=== PATIENT | male | born 1955 | race Caucasian/White ===

== ENCOUNTER 2020-04-12 12:48 | Outpatient (REF) | payer BC, SELFPAY ==
[2020-04-12 14:17] LABS: Hematocrit 48.9 % (42-52); Hemoglobin 16.1 g/dl (14.0-18.0); Mean Corpuscular HGB Conc 32.9 g/dl (31.0-36.0); Mean Corpuscular Hemoglobin 29.8 pg (27.0-33.0); Mean Corpuscular Volume 90.6 fL (80-98); Mean Platelet Volume 10.2 fL (9.4-12.4); Platelet Count 273 X10*3/uL (160-400); Red Cell Distribution Width 12.9 % (11.0-16.0); White Blood Count 8.4 X10*3/uL (4.8-10.8)
[2020-04-12 14:27] LABS: Estimated Glomerular Filt Rate > 60
[2020-04-12 15:23] LABS: Prostate Specific Antigen 6.75 ng/mL (<0.05-4.0)
[2020-04-12 15:46] LABS: Blood Urea Nitrogen 14 mg/dL (9-16)
[2020-04-16 11:56] LABS: Testosterone, Total 333 ng/dL (250-1100)
== END 2020-04-12 12:49 | disposition home or self-care (01) ==
LOC: HO.HMGCLDS 12:48
PROVIDERS: PCP Internal Medicine; Visit Provider Urology
DX: E29.1 Testicular hypofunction (principal); C03.1 Malignant neoplasm of lower gum; N40.1 Benign prostatic hyperplasia with lower urinary tract symptoms; N13.8 Other obstructive and reflux uropathy; Z12.5 Encounter for screening for malignant neoplasm of prostate
CPT/HCPCS: 36415; 82565; 84153; 84403; 84520; 85027

== ENCOUNTER → 2020-04-21 14:00 | Outpatient (BNVA) | payer BC, SELFPAY | PROVIDERS: PCP Internal Medicine; Visit Provider Urology ==

== ENCOUNTER 2020-04-23 13:46 | Outpatient (REF) | payer BC, SELFPAY ==
--- NOTE | ~2020-04-23 | CT_ITS ---
EXAMINATION: CT SOFT TISSUE NECK WITH CONTRAST CLINICAL INFORMATION: Malignant neoplasm of the mouth. COMPARISON: Soft tissue neck CT scan TECHNIQUE: Following the intravenous administration of 60 mL of Omnipaque 350 intravenous contrast, helical imaging was performed in the axial plane with generation of coronal and sagittal reformatted images. This CT examination was performed using dose optimization techniques as appropriate, variously including the following: *Automated exposure control *Adjustment of mA and/or kV according to patient size (this includes techniques or standardized protocols for targeted exams where dose is matched to indication/reason for exam; i.e. extremities or head) *Use of iterative reconstruction technique DLP: 365 mGy-cm FINDINGS: There is a soft tissue mass of the oral vestibule eroding the anterior parasymphyseal margin of the mandibular alveolar process best illustrated on axial image 59 of 137 series 3. There are a few symmetrically distributed somewhat prominent albeit nonspecific level I and II cervical lymph nodes. No mediastinal or axillary adenopathy is visualized within the [id number] of this examination. Pharyngeal mucosal spaces are symmetric. Parapharyngeal and retromaxillary fat is preserved. Tube Operator spaces are symmetric. The parotid and submandibular glands are normal. The tongue base and epiglottis are normal. Preepiglottic fat is preserved. Glottic and subglottic airways are widely patent. The thyroid gland is normal and the remainder of the visualized visceral soft tissues are normal. Lung apices are clear. Aortic arch apex is normal. Cervical carotid and vertebral arteries are patent. Internal jugular veins fill symmetrically. There is no acute osseous finding. Specifically no worrisome lytic or blastic osseous lesion. There is multilevel degenerative spondylosis of the cervical spine. Although suboptimally assessed there is a least moderate canal stenosis at levels of C5-C6 and C6-C7. Limited visualization of the intracranial anatomy reveals no abnormal finding. CT/CT soft tissue neck w con IMPRESSION: There is a soft tissue mass of the oral vestibule eroding the anterior parasymphyseal margin of the mandibular alveolar process. These findings therefore are consistent with disease progression when compared to the soft tissue neck CT scan from 11/05/2017. There are a few somewhat prominent albeit nonspecific level I an level II cervical lymph nodes. Incidentally there is multilevel degenerative spondylosis of the cervical spine with at least moderate canal stenosis at the levels of C5-C6 and C6-C7. If there are clinical symptoms of compressive myelopathy then dedicated cervical spine MRI can be obtained for better anatomic characterization of the cord and canal.
== END 2020-04-23 13:47 | disposition home or self-care (01) ==
LOC: HO.CT 13:46
PROVIDERS: Visit Provider Otolaryngology
DX: C03.1 Malignant neoplasm of lower gum (principal)
CPT/HCPCS: 70491; Q9967

== ENCOUNTER 2020-06-07 13:42 | Outpatient (REF) | payer BC, SELFPAY ==
[2020-06-08 11:37] LABS: Free Prostate Spec Ag 0.7 ng/mL; Percent Free Prostate Spec Ag 16 % (calc) (>25); Prostate Specific Ag Total 4.3 ng/mL (< OR = 4.0)
== END 2020-06-07 13:43 | disposition home or self-care (01) ==
LOC: HO.HMGCLDS 13:42
PROVIDERS: PCP Internal Medicine; Visit Provider Urology
DX: N40.1 Benign prostatic hyperplasia with lower urinary tract symptoms (principal); N13.8 Other obstructive and reflux uropathy; Z12.5 Encounter for screening for malignant neoplasm of prostate
CPT/HCPCS: 36415; 84153; 84154

== ENCOUNTER → 2020-06-15 15:38 | Outpatient (BNVA) | payer BC, SELFPAY | PROVIDERS: Visit Provider Urology ==

== ENCOUNTER 2021-01-04 14:07 | Outpatient (REF) | payer BC, SELFPAY ==
[2021-01-04 16:41] LABS: Hematocrit 42.1 % (42.0-52.0); Hemoglobin 13.5 g/dl (14.0-18.0); Mean Corpuscular HGB Conc 32.1 g/dl (31.0-36.0); Mean Corpuscular Hemoglobin 28.3 pg (27.0-33.0); Mean Corpuscular Volume 88.3 fL (80.0-98.0); Platelet Count 248 X10*3/uL (160-400); Red Blood Count 4.77 X10*6/uL (4.60-5.80); Red Cell Distribution Width 13.9 % (11.0-16.0); White Blood Count 4.4 X10*3/uL (4.8-10.8)
[2021-01-04 17:22] LABS: Prostate Specific Antigen 2.88 ng/mL (<0.05-4.0)
[2021-01-09 09:47] LABS: Testosterone, Total 360 ng/dL (250-1100)
== END 2021-01-04 14:08 | disposition home or self-care (01) ==
LOC: HO.HMGCLDS 14:07
PROVIDERS: PCP Internal Medicine; Visit Provider Urology
DX: Z12.5 Encounter for screening for malignant neoplasm of prostate (principal); E29.1 Testicular hypofunction
CPT/HCPCS: 36415; 84153; 84403; 85027

== ENCOUNTER → 2021-01-19 15:20 | Outpatient (BNVA) | payer BC, SELFPAY | PROVIDERS: Visit Provider Urology ==

== ENCOUNTER 2021-03-21 13:57 | Outpatient (REF) | payer BC, SELFPAY ==
--- NOTE | ~2021-03-21 | CT_ITS ---
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 COMPARISON: 04/23/2020 CT TECHNIQUE: Following the intravenous administration of 100 mL of Omnipaque 350 intravenous contrast, helical imaging was performed in the axial plane with generation of coronal and sagittal reformatted images. This CT examination was performed using dose optimization techniques as appropriate, variously including the following: *Automated exposure control *Adjustment of mA and/or kV according to patient size (this includes techniques or standardized protocols for targeted exams where dose is matched to indication/reason for exam; i.e. extremities or head) *Use of iterative reconstruction technique DLP: 277 mGy-cm FINDINGS: Skull Base: Bony skull base appears intact. Visualized intracranial structures are grossly unremarkable in appearance. The visualized calvarium is intact. Mastoids and middle ear cavities are unopacified. Some retention cysts noted in the right maxillary sinus. Visualized intraorbital soft tissue structures appear grossly unremarkable. 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 The oral cavity and oropharynx are partially obscured by dental amalgam artifact. There is evidence of a previous mandibular resection and reconstruction with fibular graft, with fixation hardware in place. There is loss of tissue plane between the left parotid gland and the left submandibular space, presumably posttreatment changes. There is some asymmetry of the oropharynx with a bulging appearance on the left posterolaterally, which should be correlated with direct visualization. Multiple surgical clips are seen in the subarticular spaces bilaterally consistent with previous lymph node dissections. There is some obscuration of tissue planes in the subarticular spaces bilaterally consistent with posttreatment and postsurgical changes. Relatively symmetric soft tissue thickening is seen along the anterior aspect of the reconstructed mandible, likely reflecting posttreatment changes. The visualized base of the tongue appears intact. The submandibular glands are not visualized on either side consistent with previous surgery. No definite lymphadenopathy is visualized, although evaluation is limited due to tissue plane obscuration secondary to posttreatment changes. Infrahyoid Neck: There is thickening of the epiglottis with circumferential thickening of the hypopharynx, likely reflecting posttreatment changes. Otherwise the larynx appears unremarkable. There is loss of tissue planes between the platysma and portions of the sternocleidomastoid muscles bilaterally consistent with posttreatment changes. There is infiltration of the fat along the anterior aspect of the neck also consistent with this. Thyroid gland enhances normally. No definite infrahyoid lymphadenopathy. Atheromatous vascular calcifications of the carotid bulbs are noted bilaterally similar to the previous exam. There is opacification of the major arterial and venous structures in the neck. Upper Chest: Visualized mediastinum is unremarkable. Visualized lung parenchyma shows minimal patchy opacity in the right upper lobe which is a new finding from previous exam and may reflect a subtle infiltrate. Follow-up clinically. Skeletal: Multilevel cervical DDD and spondylosis is noted with multilevel degenerative endplate sclerosis unchanged in appearance. No focally aggressive osseous lesions. Other Comments: None. CT/CT soft tissue neck w con IMPRESSION: 1. Extensive postsurgical and posttreatment changes status post resection of mandibular lesion as described above with no convincing evidence for recurrent lymphadenopathy within the limitations of the study. There is some bulging of the posterolateral oropharynx on the left which should be correlated with direct visualization, with no abnormal enhancement. See above for details. 2. Atheromatous calcifications of the carotid bulbs bilaterally similar to previous exam and multilevel cervical DDD and spondylosis unchanged in appearance.
[2021-03-21 15:17] LABS: Blood Urea Nitrogen 9 mg/dL (9-16); Estimated Glomerular Filt Rate > 60
[2021-03-21] MEDS: iohexoL 350 MG/ML 100 ML INFUS..BTL IV (15:48)
== END 2021-03-21 13:58 | disposition home or self-care (01) ==
LOC: HO.CT 13:57
PROVIDERS: Otolaryngology; PCP Internal Medicine; Visit Provider Nurse Practitioner Adult Health
DX: C03.1 Malignant neoplasm of lower gum (principal)
CPT/HCPCS: 36415; 70491; 82565; 84520; Q9967

== ENCOUNTER 2021-07-11 13:34 | Outpatient (REF) | payer BC, SELFPAY ==
[2021-07-11 16:26] LABS: Hematocrit 41.3 % (42.0-52.0); Hemoglobin 13.6 g/dl (14.0-18.0); Mean Corpuscular HGB Conc 32.9 g/dl (31.0-36.0); Mean Corpuscular Hemoglobin 28.6 pg (27.0-33.0); Mean Corpuscular Volume 86.8 fL (80.0-98.0); Mean Platelet Volume 9.4 fL (9.4-12.4); Platelet Count 257 X10*3/uL (160-400); Red Blood Count 4.76 X10*6/uL (4.60-5.80); Red Cell Distribution Width 13.4 % (11.0-16.0); White Blood Count 3.8 X10*3/uL (4.8-10.8)
[2021-07-11 17:05] LABS: Prostate Specific Antigen 3.32 ng/mL (<0.05-4.0)
[2021-07-15 01:47] LABS: Testosterone, Total 295 ng/dL (250-1100)
== END 2021-07-11 13:35 | disposition home or self-care (01) ==
LOC: HO.HMGCLDS 13:34
PROVIDERS: PCP Internal Medicine; Visit Provider Urology
DX: E29.1 Testicular hypofunction (principal); Z12.5 Encounter for screening for malignant neoplasm of prostate
CPT/HCPCS: 36415; 84153; 84403; 85027

== ENCOUNTER 2021-08-01 14:45 | Outpatient (REF) | payer BC, SELFPAY ==
--- NOTE | ~2021-08-01 | CT_ITS ---
EXAMINATION: CT CHEST WITH CONTRAST CLINICAL INFORMATION: Head and neck cancer. COMPARISON: Previous chest CT December 2016. TECHNIQUE: Multidetector volumetric CT imaging of the chest was obtained after the administration of 80 mL of Omnipaque 350 intravenous contrast without immediate adverse reactions. Axial MIP volume rendering provided. Sagittal and coronal reformatted images were obtained. Patient developed hives. This CT examination was performed using dose optimization techniques as appropriate, variously including the following: *Automated exposure control *Adjustment of mA and/or kV according to patient size (this includes techniques or standardized protocols for targeted exams where dose is matched to indication/reason for exam; i.e. extremities or head) *Use of iterative reconstruction technique DLP: 245 mGy-cm. FINDINGS: LUNGS: There is a 3 mm right upper lobe nodule axial image 202 series 7. There is a 2 mm left upper lobe nodule axial image 202 series 7. There is a 2 mm peripheral left upper lobe nodule axial image 257 series 7. These are stable from 2017 exam. No new pulmonary nodule. MEDIASTINUM: There is coronary artery calcification. The mediastinum is otherwise normal. PLEURA: There is no pleural effusion. No pleural mass or thickening. AXILLA: No lymphadenopathy. UPPER ABDOMEN: Unremarkable OSSEOUS STRUCTURES: There are degenerative changes of the spine. CT/CT chest w con IMPRESSION: Small pulmonary nodules stable from 2017 exam. Fleischner guidelines were followed.
--- NOTE | ~2021-08-01 | CT_ITS ---
EXAMINATION: CT SOFT TISSUE NECK WITH CONTRAST CLINICAL INFORMATION: Malignant neoplasm follow-up. COMPARISON: Neck CT 03/21/2021. TECHNIQUE: Following the intravenous administration of 100 mL of Omnipaque 350 intravenous contrast, helical imaging was performed in the axial plane with generation of coronal and sagittal reformatted images. This CT examination was performed using dose optimization techniques as appropriate, variously including the following: *Automated exposure control *Adjustment of mA and/or kV according to patient size (this includes techniques or standardized protocols for targeted exams where dose is matched to indication/reason for exam; i.e. extremities or head) *Use of iterative reconstruction technique FINDINGS: Patient is status post mandibulectomy and bone flap reconstruction for resection of a previously seen mass eroding the mandibular symphysis. There is persistent lucency surrounding the screws transfixed to the morongo right hemimandible suggesting hardware loosening. Slightly increase nonbridging bone formation along the margins of the bone flap/morongo mandibular reconstruction. No new bony erosive changes are identified. No definite recurrent soft tissue lesion is seen at the site of surgical resection however assessment is limited by the degree of posttreatment changes and artifact from the surgical hardware. Architectural distortion also significantly limits assessment in this area. There is posttreatment stranding throughout the soft tissues adjacent to the resection site and there is mucositis involving the oropharynx, uvula, epiglottis, supraglottic soft tissues, and the hypopharynx. The thyroid gland, the laryngeal structures, and the parotid glands are unremarkable. Multiple surgical clips within the neck bilaterally. Seminal annular glands not visualized, likely resected. The orbital soft tissues are unremarkable. The oropharynx is significantly obscured by artifact. Atherosclerotic calcification involving the carotid bifurcations bilaterally. The cervical venous system remains patent. There is multilevel cervical spondylosis which is advanced at the C3-C4, C4-C5, C5-C6, C6-C7, and C7-T1 levels. There is mild polypoid mucosal thickening within the right maxillary sinus and there is mild mucosal thickening within the ethmoid air cells bilaterally. The remaining paranasal sinuses and the mastoid air cells are clear. Anterior subluxation of the mandibular condyles bilaterally. Imaged upper lungs are clear and the imaged upper mediastinum is unremarkable. Partially imaged intracranial compartment unremarkable. CT/CT soft tissue neck w con IMPRESSION: - Patient is status post mandibulectomy and bone flap reconstruction for resection of a previously seen mass eroding the mandibular symphysis. No new bony erosive changes are identified and no definite recurrent soft tissue lesion is seen at the site of surgical resection however assessment is limited by the degree of posttreatment changes and significant artifact from the surgical hardware. There is no new cervical lymphadenopathy. - There is persistent lucency surrounding the screws transfixed to the morongo right hemimandible suggesting hardware loosening. Slightly increase nonbridging bone formation along the margins of the bone flap/morongo mandibular reconstruction. - There is posttreatment stranding throughout the soft tissues adjacent to the resection site which is improved and there is similar mucositis involving the oropharynx, uvula, epiglottis, supraglottic soft tissues, and the hypopharynx.
[2021-08-01 15:14] LABS: Estimated Glomerular Filt Rate > 60
[2021-08-01] MEDS: iohexoL 350 MG/ML 100 ML INFUS..BTL IV (16:38)
== END 2021-08-01 14:46 | disposition home or self-care (01) ==
LOC: HO.CT 14:45
PROVIDERS: PCP Internal Medicine; Visit Provider Otolaryngology
DX: Z08 Encounter for follow-up examination after completed treatment for malignant neoplasm (principal); R91.8 Other nonspecific abnormal finding of lung field; Z85.819 Personal history of malignant neoplasm of unspecified site of lip, oral cavity, and pharynx
CPT/HCPCS: 36415; 70491; 71260; 82565; Q9967

== ENCOUNTER 2022-01-02 11:54 | Outpatient (REF) | payer BC, SELFPAY ==
[2022-01-02 14:10] LABS: Hematocrit 44.3 % (42.0-52.0)
[2022-01-02 14:43] LABS: PSA,Total (Free>4and<10) 2.64 ng/mL (0.00-4.00)
[2022-01-07 15:18] LABS: Testosterone, Total 502 ng/dL (250-1100)
== END 2022-01-02 11:55 | disposition home or self-care (01) ==
LOC: HO.HMGCLDS 11:54
PROVIDERS: PCP Internal Medicine; Visit Provider Urology
DX: E29.1 Testicular hypofunction (principal); Z12.5 Encounter for screening for malignant neoplasm of prostate
CPT/HCPCS: 36415; 84153; 84403; 85014

== ENCOUNTER 2022-07-05 11:58 | Outpatient (REF) | payer BC, SELFPAY ==
[2022-07-05 14:13] LABS: Hematocrit 46.3 % (42.0-52.0); Hemoglobin 15.3 g/dl (14.0-18.0); Mean Corpuscular Hemoglobin 29.5 pg (27.0-33.0); Mean Corpuscular Volume 89.4 fL (80.0-98.0); Mean Platelet Volume 9.6 fL (9.4-12.4); Platelet Count 280 X10*3/uL (160-400); Red Blood Count 5.18 X10*6/uL (4.60-5.80); Red Cell Distribution Width 13.2 % (11.0-16.0); White Blood Count 4.3 X10*3/uL (4.8-10.8)
[2022-07-05 14:42] LABS: Prostate Specific Antigen 3.57 ng/mL (<0.05-4.0)
[2022-07-11 11:13] LABS: Testosterone, Total 673 ng/dL (250-1100)
== END 2022-07-05 11:59 | disposition home or self-care (01) ==
LOC: HO.HMGCLDS 11:58
PROVIDERS: Visit Provider Urology
DX: Z12.5 Encounter for screening for malignant neoplasm of prostate (principal); E29.1 Testicular hypofunction
CPT/HCPCS: 36415; 84153; 84403; 85027

== ENCOUNTER → 2022-07-18 14:09 | Outpatient (BNVA) | payer BC, SELFPAY | PROVIDERS: PCP Internal Medicine; Visit Provider Urology ==

== ENCOUNTER 2022-12-29 14:51 | Outpatient (REF) | payer BC, SELFPAY ==
--- NOTE | ~2022-12-29 | CT_ITS ---
EXAMINATION: CT SOFT TISSUE NECK WITHOUT CONTRAST CLINICAL INFORMATION: Malignant neoplasm of gum. There seems to be a piece of bone-like growth, growing under my mandible. COMPARISON: CT neck soft tissue on 08/01/2021. TECHNIQUE: Helical imaging was performed in the axial plane with generation of coronal and sagittal reformatted images. This CT examination was performed using dose optimization techniques as appropriate, variously including the following: *Automated exposure control *Adjustment of mA and/or kV according to patient size (this includes techniques or standardized protocols for targeted exams where dose is matched to indication/reason for exam; i.e. extremities or head) *Use of iterative reconstruction technique DLP: 240 mGy-cm FINDINGS: Redemonstration of postsurgical changes from mandibulectomy bone flat reconstruction. There is persistent lucency surrounding the screws transfix to the wales right hemimandible. There has been interval bone formation and osseous bridging along the margins of the bone flap/wales mandibular reconstruction on the right. Persistent nonbridging along the margins of the reconstruction site on the left with suggestion of worsening alignment of the osseous fragments. No new erosive changes identified. No definite recurrent soft tissue lesion at the site of surgical resection; however, assessment is limited by the lack of intravenous contrast, the degree of posttreatment changes as well as artifact from surgical hardware. Diffuse posttreatment stranding is again seen throughout the soft tissues adjacent to the resection site. Multiple surgical clips are visualized within the neck bilaterally, unchanged. No suspiciously enlarged neck lymph node or mass. Limited evaluation of the oral cavity secondary to streak artifacts. Otherwise, the oropharynx appears unremarkable. The nasopharynx, hypopharynx, and laryngeal structures appear unremarkable. The submandibular glands are not visualized, likely surgically absent. The parotid and thyroid glands are unremarkable. The visualized orbits are unremarkable. Mucosal thickening of the maxillary sinuses. The mastoid air cells are clear. Atherosclerotic calcifications of the bilateral carotid siphons. The visualized portions of the brain are unremarkable. Otherwise, no acute osseous abnormality. No lytic or blastic osseous lesions. Multilevel degenerative changes of the visualized spine. The visualized lungs are clear. CT/CT soft tissue neck wo IV con IMPRESSION: -Redemonstration of postsurgical changes from mandibulectomy bone flat reconstruction. Interval bone formation and improved osseous bridging along the margins of the bone flap/wales mandibular reconstruction on the right. Persistent nonbridging along the margins of the reconstruction site on the left with suggestion of worsening alignment of the osseous fragments. -Persistent lucency surrounding the screws transfixed to the wales right hemimandible suggestive of hardware loosening. -No new erosive changes identified. No definite recurrent soft tissue lesion at the site of surgical resection; however, assessment is limited by the lack of intravenous contrast, the degree of posttreatment changes as well as artifact from surgical hardware. No new cervical adenopathy.
== END 2022-12-29 14:52 | disposition home or self-care (01) ==
LOC: HO.CT 14:51
PROVIDERS: PCP Internal Medicine; Visit Provider Specialist
DX: C03.1 Malignant neoplasm of lower gum (principal)
CPT/HCPCS: 70490

== ENCOUNTER 2023-01-10 14:51 | Outpatient (REF) | payer BC, SELFPAY ==
[2023-01-10 16:22] LABS: Hematocrit 42.7 % (42.0-52.0); Hemoglobin 14.5 g/dl (14.0-18.0); Mean Corpuscular Volume 88.2 fL (80.0-98.0); Platelet Count 275 X10*3/uL (160-400); Red Blood Count 4.84 X10*6/uL (4.60-5.80); Red Cell Distribution Width 12.6 % (11.0-16.0); White Blood Count 5.7 X10*3/uL (4.8-10.8)
[2023-01-10 16:57] LABS: Prostate Specific Antigen 4.34 ng/mL (<0.05-4.0)
[2023-01-17 14:38] LABS: Testosterone, Total 423 ng/dL (250-1100)
== END 2023-01-10 14:52 | disposition home or self-care (01) ==
LOC: HO.HMGCLDS 14:51
PROVIDERS: Visit Provider Urology
DX: Z12.5 Encounter for screening for malignant neoplasm of prostate (principal); E29.1 Testicular hypofunction
CPT/HCPCS: 36415; 84153; 84403; 85027

== ENCOUNTER 2023-01-17 14:04 | Outpatient (AMB) | payer BC, SELFPAY ==
--- NOTE | 2023-01-17 14:06 | A.OFFVIS_ITS ---
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 He is a patient of Dr Boyd. He is seen for the following urologic conditions. - hypogonadism - prostatitis Six month review PSA up a little Has risen by 1.8 points over 18 months Discussed possible biopsy At this point will continue to follow and 6 months. If still elevated would s uggest biopsy Continue with testosterone replacement - will aim for 2 pumps daily Review in 6 months Hypogonadism: He presents today for Discussed current T levels Testosterone in normal range continue to follow every 6 months Initial symptoms include erectile dysfunction Yes decreased libido Yes change in mood/depression Yes in muscle size/strength Yes increased fatigue/malaise Yes increased abdominal fat No tender breasts/gynecomastia No hair loss No osteopenia No The onset of symptoms has been gradual. Associate conditions include obstructive sleep apnea No CAD No diabetes Yes obesity No stress - financial, family, employment No heavy alcohol or illicit drug use No Laboratory results 08/22 , baseline, testosterone 205 09/22 T 404 10/23 T 606 F 120 3 T 267 PSA 2.43, 4 T 220, 07/24 T 330 F 62, 10/24 T 330 F 58 03/27 T 440, PSA 2.3, Hct 48, 09/24 T 285 PSA 2.8 - 04/25 testosterone 340, PSA 6.8, 5/21 4.4, 12/26 T 360 P 2.9, 06/26 295 3.3, 12/27 T 2.6 T 502, 06/27 673 P 3.6, 01/27 T pend PSA 4.3 Current therapy includes 10/23 Androgel 3 pumps. Diagnosis based on history and laboratory results Primary testicular failure. Therapuetic plan continue current medication - repeat labs in 6m Lower Urinary Tract Symptoms: On Flomax 0.8 mg daily. Current visit is for further evaluation of, lower urinary tract symptoms, predominate obstructive symptoms. Current treatment includes medication, alpha axel. Prostate Symptom Score Moderate (9-19), Bother 3. Symptoms include incomplete emptying, weak stream, and are progressing [facility] Medical History Diabetes mellitus, type II Hypogonadism in male Low libido Verrucous carcinoma Weak urinary stream Review of Systems Const Denies chills and Denies fever(s) Card Reports no additional complaints and Denies syncope Resp Denies cough GI Denies abdominal pain and Denies heartburn Reports as per HPI and Denies change in libido Neuro Denies syncope Psych Denies change in libido Endo Denies change in libido Physical Exam Const General: cooperative, healthy appearing, comfortable and no acute distress Orientation/consciousness: patient oriented x3 HEENT Face and sinus: Yes normal facial exam Mouth: moist mucous membranes Neck Neck: Yes normal visual inspection, Yes full ROM and Yes trachea midline Chest Chest palpation & inspection: normal inspection of the chest Resp Effort & Inspection: normal respiratory effort, able to speak in complete sentences and no respiratory distress GI Inspection: Yes normal to inspection Back/Spine/Pelvis Cervical Spine: normal cervical lordosis Thoracic/Lumbar Spine: thoracic and lumbar spine normal to inspection Skin General skin exam: no rashes or lesions noted Neuro General: patient oriented x3, gait normal, tone normal and moves all extremities Extrem General: Yes normal to inspection and Yes capillary refill normal Assessment & Plan Assessment & Plan (1) Elevated PSA: Code(s): R97.20 - Elevated prostate specific antigen [PSA] (2) Hypogonadism in male: Code(s): E29.1 - Testicular hypofunction Plan Six month follow-up lab work Orders: Orders Prostate Specific Antigen 6 Months E29.1 - Testicular hypofunction Complete Blood Count no Diff 6 Months E29.1 - Testicular hypofunction Testosterone, Total 6 Months E29.1 - Testicular hypofunction Medications: Refilled testosterone apply 2 pumps over max area of ONE upper arm and shoulder 2 pumps topical DAILY 75 grams 5RF 28 days E29.1 - Testicular hypofunction tamsulosin 0.8 mg (2 x 0.4 mg) PO BEDTIME 180 caps 1RF 90 days E29.1 - Testicular hypofunction Patient Instructions: Imaging studies, laboratory and physical exam results were discussed and reviewed in detail. No major barriers to patient understanding were identified. An opportunity to ask questions regarding the treatment plan was provided. All questions were answered. The patient expressed understanding and agreement with the above treatment plan. The patient is aware they should contact our office by phone for worsening of their current condition or the appearance of new urologic symptoms. Compliance is encouraged with any medications and followup testing that is ordered. It is a privilege to participate in the urologic care of your patient. If you have any questions or concerns regarding treatment for the above conditions, or other urologic issues, please do not hesitate to contact me. The office telephone contact is [phone]. This note is constructed using voice recognition software. While every effort has been made to ensure accuracy trolley cleaner errors may have been included. Yours sincerely, Dr Marlo Marsh MD, [facility] Providers of Expert, Compassionate Care for the Genitourinary System Coding Level of Care Code Est Pt Level 3 (53116) Diagnoses Elevated PSA R97.20 Hypogonadism in male E29.1
== END 2023-01-17 14:24 | disposition home or self-care (01) ==
PROVIDERS: PCP Internal Medicine; Visit Provider Urology
DX: R97.20 Elevated prostate specific antigen [PSA] (principal); E29.1 Testicular hypofunction
CPT/HCPCS: 99213

== ENCOUNTER → 2023-01-17 14:04 | Outpatient (BNVA) | payer BC, SELFPAY | PROVIDERS: PCP Internal Medicine; Visit Provider Urology ==

== ENCOUNTER 2023-07-10 13:50 | Outpatient (REF) | payer BC, SELFPAY ==
[2023-07-10 16:14] LABS: Hematocrit 41.4 % (42.0-52.0); Hemoglobin 14.1 g/dl (14.0-18.0); Mean Corpuscular HGB Conc 34.1 g/dl (31.0-36.0); Mean Corpuscular Hemoglobin 30.7 pg (27.0-33.0); Mean Platelet Volume 9.6 fL (9.4-12.4); Platelet Count 229 X10*3/uL (160-400); Red Cell Distribution Width 13.2 % (11.0-16.0); White Blood Count 4.7 X10*3/uL (4.8-10.8)
[2023-07-10 16:45] LABS: Prostate Specific Antigen 4.93 ng/mL (<0.05-4.0)
[2023-07-14 17:34] LABS: Testosterone, Total 607 ng/dL (250-1100)
== END 2023-07-10 13:51 | disposition home or self-care (01) ==
LOC: HO.HMGCLDS 13:50
PROVIDERS: PCP Internal Medicine; Visit Provider Urology
DX: Z12.5 Encounter for screening for malignant neoplasm of prostate (principal); E29.1 Testicular hypofunction
CPT/HCPCS: 36415; 84153; 84403; 85027

== ENCOUNTER 2023-07-18 14:23 | Outpatient (AMB) | payer BC, SELFPAY ==
--- NOTE | 2023-07-18 14:24 | MHC.OFFVIS ---
Intake Visit Reasons: 6m/labs(set) Intake Note: Patient is Present for Telephone Follow Up For Urology Med: Testosterone, Tamsulosin Antibiotic Allergy: None Blood Thinner: None Allergies iohexol [From Omnipaque] Adverse Reaction (Mild, Verified 01/17/23 14:13) Hives Shellfish Allergy (Unknown, Uncoded 01/17/23 14:13) Unknown Medication List - Last Reconciled 07/18/23 by Marlo Marsh MD atorvastatin 10 mg PO DAILY blood-glucose meter,continuous (Dexcom G6 Infection Control Specialist) As directed blood-glucose sensor (Dexcom G6 Sensor device) As directed flash glucose sensor As directed glipizide 5 mg PO BID metformin 1,000 mg PO BID mirtazapine 15 mg PO BEDTIME oxycodone mg PO pilocarpine HCl 5 mg PO TID tamsulosin 0.8 mg (2 x 0.4 mg) PO BEDTIME 90 days testosterone 2 pumps topical DAILY 28 days HPI Comments Details: Bj JOSE is a very pleasant male. He is a patient of Dr Boyd. He is seen for the following urologic conditions. - hypogonadism - prostatitis Six month review PSA up a little Has risen by 1.8 points over 18 months Discussed possible biopsy At this point will continue to follow and 6 months. If still elevated would suggest biopsy Continue with testosterone replacement - will aim for 2 pumps daily Review in 6 months Hypogonadism: He presents today for Discussed current T levels Testosterone in normal range continue to follow every 6 months Initial symptoms include erectile dysfunction Yes decreased libido Yes change in mood/depression Yes in muscle size/strength Yes increased fatigue/malaise Yes increased abdominal fat No tender breasts/gynecomastia No hair loss No osteopenia No The onset of symptoms has been gradual. Associate conditions include obstructive sleep apnea No CAD No diabetes Yes obesity No stress - financial, family, employment No heavy alcohol or illicit drug use No Laboratory results 08/22 , baseline, testosterone 205 09/22 T 404 10/23 T 606 F 120 04/23 T 267 PSA 2.43, 05/24 T 220, 07/24 T 330 F 62, 10/24 T 330 F 58 03/27 T 440, PSA 2.3, Hct 48, 09/24 T 285 PSA 2.8, 04/25 testosterone 340, PSA 6.8, 06/25 4.4, 11/21 T 360 P 2.9, 06/26 295 3.3, 12/27 T 2.6 T 502, 06/27 673 P 3.6, 01/27 T pend PSA 4.3, 07/29 4.9 T 607 Current therapy includes 10/23 Androgel 3 pumps. Diagnosis based on history and laboratory results Primary testicular failure. Therapuetic plan continue current medication - repeat labs in 6m Lower Urinary Tract Symptoms: On Flomax 0.8 mg daily. Current visit is for further evaluation of, lower urinary tract symptoms, predominate obstructive symptoms. Current treatment includes medication, alpha axel. Prostate Symptom Score Moderate (9-19), Bother 3. Symptoms include incomplete emptying, weak stream, and are progressing [facility] Medical History Verrucous carcinoma Diabetes mellitus, type II Weak urinary stream Low libido Hypogonadism in male Review of Systems Const All systems reviewed & are unremarkable except as noted in HPI and below Reports no additional complaints Resp Reports no additional complaints GI Reports no additional complaints Reports as per HPI Musc Reports no additional complaints Physical Exam Telemedicine evaluation Appropriate responses Regular breathing rate and rhythm HEENT Head: Yes normal to inspection Ears: hearing grossly normal bilaterally Eyes General: appearance normal, both eyes and all related structures Neck Neck: Yes normal visual inspection Chest Chest palpation & inspection: normal inspection of the chest Resp Effort & Inspection: normal respiratory effort and able to speak in complete sentences Telehealth Telehealth Telehealth Platform: [facility] Location of provider rendering services: practice address Location of patient: address on file Patient Identification confirmed using: Name, : Yes Telehealth method: video Patient verbally consented to treatment: Yes Patient verbally consented to billing insurance company: Yes Patient informed of any privacy concerns related to visit: Yes Minutes spent on Phone/Video with Pt.: 15 Assessment & Plan Assessment & Plan (1) Elevated PSA: Code(s): R97.20 - Elevated prostate specific antigen [PSA] Category: Medical (2) Hypogonadism in male: Code(s): E29.1 - Testicular hypofunction Category: Medical Plan Continue interval surveillance Orders: Orders Prostate Specific Antigen 6 Months E29.1 - Testicular hypofunction Testosterone, Total 6 Months E29.1 - Testicular hypofunction Patient Instructions: Imaging studies, laboratory and physical exam results were discussed and reviewed in detail. No major barriers to patient understanding were identified. An opportunity to ask questions regarding the treatment plan was provided. All questions were answered. The patient expressed understanding and agreement with the above treatment plan. The patient is aware they should contact our office by phone for worsening of their current condition or the appearance of new urologic symptoms. Compliance is encouraged with any medications and followup testing that is ordered. It is a privilege to participate in the urologic care of your patient. If you have any questions or concerns regarding treatment for the above conditions, or other urologic issues, please do not hesitate to contact me. The office telephone contact is [phone]. This note is constructed using voice recognition software. While every effort has been made to ensure accuracy exhaust machine operator errors may have been included. Yours sincerely, Dr Marlo Marsh MD, [facility] - Urology Providers of Expert, Compassionate Care for the Genitourinary System Coding Level of Care Code Tele Est Pt Level 3 (63269) Diagnoses Elevated PSA R97.20 Hypogonadism in male E29.1
== END 2023-07-18 14:56 | disposition home or self-care (01) ==
LOC: HO.HUSH 14:23
PROVIDERS: PCP Internal Medicine; Visit Provider Urology
DX: R97.20 Elevated prostate specific antigen [PSA] (principal); E29.1 Testicular hypofunction
CPT/HCPCS: 99213

== ENCOUNTER → 2023-07-18 14:23 | Outpatient (BNVA) | payer BC, SELFPAY | PROVIDERS: PCP Internal Medicine; Visit Provider Urology ==

== ENCOUNTER 2023-08-07 14:31 | Outpatient (REF) | payer BC, SELFPAY ==
[2023-08-07 16:32] LABS: Estimated Average Glucose 137 mg/dL; Hemoglobin A1c % 6.4 % (<6.0)
== END 2023-08-07 14:32 | disposition home or self-care (01) ==
LOC: HO.HMGCLDS 14:31
PROVIDERS: PCP Internal Medicine; Visit Provider Internal Medicine
DX: E11.9 Type 2 diabetes mellitus without complications (principal)
CPT/HCPCS: 36415; 83036

== ENCOUNTER 2023-09-24 13:47 | Outpatient (REF) | payer BC, SELFPAY ==
[2023-09-24 16:16] LABS: Blood Urea Nitrogen 12 mg/dL (9-16); Estimated Glomerular Filt Rate > 60
== END 2023-09-24 13:48 | disposition home or self-care (01) ==
LOC: HO.HMGCLDS 13:47
PROVIDERS: PCP Internal Medicine; Visit Provider Otolaryngology
DX: C03.1 Malignant neoplasm of lower gum (principal)
CPT/HCPCS: 36415; 82565; 84520

== ENCOUNTER 2023-10-03 15:50 | Outpatient (REF) | payer BC, SELFPAY | END 2023-10-03 15:51 | disposition home or self-care (01) | LOC: HO.CT 15:50 | PROVIDERS: PCP Internal Medicine; Visit Provider Otolaryngology | DX: Z13.89 Encounter for screening for other disorder (principal) ==

== ENCOUNTER 2024-01-14 08:14 | Outpatient (REF) | payer BC, SELFPAY ==
[2024-01-14 11:08] LABS: Prostate Specific Antigen 4.01 ng/mL (<0.05-4.0)
[2024-01-18 17:38] LABS: Testosterone, Total 610 ng/dL (250-1100)
== END 2024-01-14 08:15 | disposition home or self-care (01) ==
LOC: HO.HMGCLDS 08:14
PROVIDERS: PCP Internal Medicine; Visit Provider Urology
DX: E29.1 Testicular hypofunction (principal); Z12.5 Encounter for screening for malignant neoplasm of prostate
CPT/HCPCS: 36415; 84153; 84403

== ENCOUNTER 2024-01-16 13:58 | Outpatient (AMB) | payer BC, SELFPAY ==
--- NOTE | 2024-01-16 14:05 | MHC.OFFVIS ---
Intake Visit Reasons: 6m/labs Intake Note: Patient is present for 6M/LABS Urology Medication:TAMSULOSIN,TESTOSTERONE Antibiotic Allergy:NONE Blood Thinner:NONE Psych Tech Required: No Allergies iohexol [From Omnipaque] Adverse Reaction (Mild, Verified 01/16/24 14:05) Hives Shellfish Allergy (Unknown, Uncoded 01/16/24 14:05) Unknown HPI Comments Details: Bj JOSE is a very pleasant male. He is a patient of Dr Boyd. He is seen for the following urologic conditions. - hypogonadism - prostatitis Six month review PSA has decreased. At this point would hold off biopsy. Continue with testosterone replacement - will aim for 2 pumps daily Review in 6 months Hypogonadism: He presents today for Discussed current T levels Testosterone in normal range continue to follow every 6 months Initial symptoms include erectile dysfunction Yes decreased libido Yes change in mood/depression Yes in muscle size/strength Yes increased fatigue/malaise Yes increased abdominal fat No tender breasts/gynecomastia No hair loss No osteopenia No The onset of symptoms has been gradual. Laboratory results 08/22 , baseline, testosterone 205 09/22 T 404 10/23 T 606 F 120 04/23 T 267 PSA 2.43, 05/24 T 220, 07/24 T 330 F 62, 10/24 T 330 F 58 03/27 T 440, PSA 2.3, Hct 48, 09/24 T 285 PSA 2.8, 04/25 testosterone 340, PSA 6.8, 06/25 4.4, 12/26 T 360 P 2.9, 06/26 295 3.3, 12/27 T 2.6 T 502, 06/27 673 P 3.6, 01/27 T pend PSA 4.3, 07/29 4.9 T 607, 01/28 4.0 Current therapy includes 10/23 Androgel 3 pumps. Diagnosis based on history and laboratory results Primary testicular failure. Therapuetic plan continue current medication - repeat labs in 6m Lower Urinary Tract Symptoms: On Flomax 0.8 mg daily. Current visit is for further evaluation of, lower urinary tract symptoms, predominate obstructive symptoms. Current treatment includes medication, alpha axel. Prostate Symptom Score Moderate (9-19), Bother 3. Symptoms include incomplete emptying, weak stream, and are progressing [facility] Medical History Verrucous carcinoma Diabetes mellitus, type II Weak urinary stream Low libido Hypogonadism in male Review of Systems Const Denies chills and Denies fever(s) Card Reports no additional complaints and Denies syncope Resp Denies cough GI Denies abdominal pain and Denies heartburn Reports as per HPI and Denies change in libido Neuro Denies syncope Psych Denies change in libido Endo Denies change in libido Physical Exam Const General: cooperative, healthy appearing, comfortable and no acute distress Orientation/consciousness: patient oriented x3 HEENT Face and sinus: Yes normal facial exam Mouth: moist mucous membranes Neck Neck: Yes normal visual inspection, Yes full ROM and Yes trachea midline Chest Chest palpation & inspection: normal inspection of the chest Resp Effort & Inspection: normal respiratory effort, able to speak in complete sentences and no respiratory distress GI Inspection: Yes normal to inspection Back/Spine/Pelvis Cervical Spine: normal cervical lordosis Thoracic/Lumbar Spine: thoracic and lumbar spine normal to inspection Skin General skin exam: no rashes or lesions noted Neuro General: patient oriented x3, gait normal, tone normal and moves all extremities Extrem General: Yes normal to inspection and Yes capillary refill normal Assessment & Plan Assessment & Plan (1) Elevated PSA: Code(s): R97.20 - Elevated prostate specific antigen [PSA] Category: Medical (2) Hypogonadism in male: Code(s): E29.1 - Testicular hypofunction Category: Medical Plan Six-month follow-up labs Orders: Orders Prostate Specific Antigen 6 Months E29.1 - Testicular hypofunction Testosterone, Total 6 Months E29.1 - Testicular hypofunction Complete Blood Count no Diff 6 Months E29.1 - Testicular hypofunction Patient Instructions: Imaging studies, laboratory and physical exam results were discussed and reviewed in detail. No major barriers to patient understanding were identified. An opportunity to ask questions regarding the treatment plan was provided. All questions were answered. The patient expressed understanding and agreement with the above treatment plan. The patient is aware they should contact our office by phone for worsening of their current condition or the appearance of new urologic symptoms. Compliance is encouraged with any medications and followup testing that is ordered. It is a privilege to participate in the urologic care of your patient. If you have any questions or concerns regarding treatment for the above conditions, or other urologic issues, please do not hesitate to contact me. The office telephone contact is [phone]. This note is constructed using voice recognition software. While every effort has been made to ensure accuracy black top spreader machine operator errors may have been included. Yours sincerely, Dr Marlo Marsh MD, [facility] - Urology Providers of Expert, Compassionate Care for the Genitourinary System Coding Level of Care Code Est Pt Level 3 (20240) Diagnoses Elevated PSA R97.20 Hypogonadism in male E29.1
== END 2024-01-16 14:40 | disposition home or self-care (01) ==
PROVIDERS: PCP Internal Medicine; Visit Provider Urology
DX: R97.20 Elevated prostate specific antigen [PSA] (principal); E29.1 Testicular hypofunction
CPT/HCPCS: 99213

== ENCOUNTER → 2024-01-16 13:58 | Outpatient (BNVA) | payer BC, SELFPAY | PROVIDERS: PCP Internal Medicine; Visit Provider Urology ==

== ENCOUNTER 2024-01-22 11:33 | Outpatient (REF) | payer BC, SELFPAY | END 2024-01-22 11:34 | disposition home or self-care (01) | LOC: HO.CT 11:33 | PROVIDERS: PCP Internal Medicine; Visit Provider Specialist | DX: F17.211 Nicotine dependence, cigarettes, in remission (principal) | CPT/HCPCS: 71250 ==

== ENCOUNTER 2024-02-27 09:41 | Outpatient (REF) | payer BC, SELFPAY ==
--- NOTE | ~2024-02-27 | CT_ITS ---
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 Patient has undergone prior partial left mandible resection extending to the symphyseal region of the mandible. Bone flap reconstruction has been performed. Plate and screw device is seen along the anterior aspect of the mandible spanning from the right to left mandible. There is increasing lucency along the left aspect of the anterior mandible now measuring 2.1 x 1.1 cm in size previously measured 0.9 x 0.7 cm in size. This is surgical screw which enters this lucency which does not appear to be incorporated into the bone. No bony ankylosis is seen along the osteotomy site of the angle of the mandible on the left. There is induration within the soft tissues both anterior and posterior to the site of abnormal lucency within the left mandible. Numerous surgical clips are seen along the left aspect of the upper neck. Upper airway is patent. Dense vascular calcification of the carotid arteries. No infiltrates or mass lesion seen within the lung apices. Thyroid gland is unremarkable. IMPRESSION: Postsurgical change of the mandible as above with increasing lucency along the left parasymphyseal region. This may be related to osteolysis from incomplete bony healing versus recurrence of neoplastic process. Clinical correlation advised. This document has been electronically signed by: Hunter Moreno MD on 02/28/2024 09:33:36
--- OUTSIDE RECORDS SUMMARY | 2024-02-27 10:23 | XMS_ITS | Clinical Summary ---
Author Organization [facility] Address [address] [place] [address] Care Team Providers Care Area Counselor Name Role Phone Unavailable Primary Care Provider Unavailabl e Source Comments PLEASE NOTE, if this patient is a minor, it may be UNLAWFUL to discuss sensitive information that is contained in these records (such as FAMILY PLANNING, MENTAL HEALTH or SUBSTANCE ABUSE) with the minor patient's parent or other person without the patient's specific authorization.[facility] Immunizations Name Administration Dates Next Due Moderna COVID-19 Vaccine, re d cap blue label, 12+ Primary Series 05/25/2020,04/21/2020 Social History Tobacco Use Types Packs/Day Years Used Date Smoking Tobacco: Never Assessed Social Connections Answer Date Recorded Social Connections and Isolation 0 04/21/2020 Financial Resource Strain Answer Date R ecorded Financial Resource Strain 0 2020 Stress Answer Date Recorded Stress 0 04/21/2020 Physical Activity Answer Date Recorded Physical Activity 0 04/21/2020 Food Insecurity Answer Date Recorded Food 0 04/21/2020 Transportation Needs Answer Date Record ed Transportation 0 04/21/2020 Housing Stability Answer Date Recorded Housing 0 04/21/2020 Safety and Environment Answer Date Andi rded Safety 0 04/21/2020 Utilities Answer Date Recorded Utilities 0 04/21/2020 Employment Answer Date Recorded Employment 0 04/21/2020 Sex and Gender Information Value Date Recorded Sex Assigned at Not on file Legal Sex Male 10:15 AM PDT Gender Identity Not on file Sexual Orientation Not on file Plan of Treatment Health Maintenance Due Date Last Done Comments Diabetes Screening 1955 Hepatitis C Screening 1955 Lipid Screening 1955 Tobacco Screening 1955 Annual Preventive Care Visit 10/29/1971 Hypertension Screening (#1) 10/29/1971 Imm-DTaP/Tdap/Td (1 - Tdap) 1972 CT Colonography 1998 Colonoscopy 1998 Colorectal Cancer Screening 1998 FIT/gFOBT 1998 Fecal DNA 1998 Flexible Sigmoidoscopy 1998 Abdominal Aortic Aneurysm Screening 2018 Falls Prevention 2018 Imm-Pneumococcal 65+ (1 of 1 - PCV) 2018 Gru-GLSED-54 (3 - season) 2023 021, 04/21/2020 Imm-Influenza (#1) 2023 12/09/2017 Alcohol and Drug Screen 02/06/2024 Depression Annual Screen 02/06/2024 Imm-Zoster, Recombinant Completed 04/08/2019, 12/07 Insurance [employer] [facility] Member Subscriber Plan / Payer (Ef fective 2013-Present) Name:Bj Renteria Relation to Subscriber:Self Name:Bj Renteria Payer ID:[id number] Type:Indemnity Address: [facility] [address] [place] [address]
[2024-02-27] MEDS: iohexoL 350 MG/ML 100 ML INFUS..BTL 60 ML IV (10:35)
[2024-02-27 15:22] LABS: Creatinine POC 0.8 mg/dL (0.5-1.4); GFR POC > 60
== END 2024-02-27 09:42 | disposition home or self-care (01) ==
LOC: HO.CT 09:41
PROVIDERS: PCP Internal Medicine; Visit Provider Otolaryngology
DX: C03.1 Malignant neoplasm of lower gum (principal)
CPT/HCPCS: 70491; 82565; Q9967

== ENCOUNTER → 2024-02-27 09:43 | Outpatient (BNV) | payer BC, SELFPAY | PROVIDERS: PCP Internal Medicine; Visit Provider Radiology Diagnostic Radiology | DX: C03.9 Malignant neoplasm of gum, unspecified (principal) | CPT/HCPCS: 70491 ==

== ENCOUNTER 2024-06-18 13:54 | Outpatient (REF) | payer BC, SELFPAY ==
--- NOTE | ~2024-06-18 | US_ITS ---
CLINICAL HISTORY: PER CT DENSE VASCULAR CALCIFICATION OF CAROTID ARTERIES --- Additional Notes or Spe cial Instructions: R O NARROWED ARTERIES US Bilateral Carotid Duplex Comparison: None Findings: No significant plaque within the common carotid arteries. No significant plaque within the carotid bulbs. Color doppler and spectral tracings demonstrate arrhythmia and are otherwise normal. Right thyroid nodule measuring 8 mm. Peak systolic velocities: Right CCA: 119 cm/s. Right ICA: 111 cm/s. ICA/CCA ratio: 0.7. Right ECA: 149 cm per segment. Right vertebral artery flow antegrade. Left CCA: 139 cm/s. Left ICA: 80 cm/s. ICA/CCA ratio: 0.52. Left ECA: 124 cm/sec. Left vertebral artery flow antegrade. IMPRESSION: 1. Cardiac arrhythmia. 2. Normal carotid velocities, no significant stenosis (0-49% stenosis). 2. Right thyroid nodule. This could be further assessed with dedicated thyroid ultrasound, if clinically indicated. This document has been electronically signed by: Alvin Castaneda MD on 06/18/2024 16:02:42
--- OUTSIDE RECORDS SUMMARY | 2024-06-18 13:56 | XMS_ITS | Clinical Summary ---
Author Organization [facility] Address [address] [place] [address] Care Team Providers Care Bulk Clerk Name Role Phone Unavailable Primary Care Provider Unavailabl e Source Comments PLEASE NOTE, if this patient is a minor, it may be UNLAWFUL to discuss sensitive information that is contained in these records (such as FAMILY PLANNING, MENTAL HEALTH or SUBSTANCE ABUSE) with the minor patient's parent or other person without the patient's specific authorization.[facility] Immunizations Immunization Administration Dates Next Due Moderna COVID-19 Vaccine, [...] 1955 Lipid Screening 1953 Tobacco Screening 1953 Hypertension Screening (#1) 10/29/1971 Imm-DTaP/Tdap/Td (1 - Tdap) 1972 CT Colonography 1998 Colonoscopy 1998 Colorectal Cancer Screening 1998 FIT/gFOBT 1998 Fecal DNA 1998 Flexible Sigmoidoscopy 1998 Imm-Pneumococcal 65+ (1 of 1 - PCV) 10/29/2003 Abdominal Aortic Aneurysm Screening 2018 Falls Prevention 2018 Ybk-PCNCB-24 (3 - season) 2023 021, 04/21/2020 Imm-Influenza (#1) 2023 12/09/2017 Alcohol and Drug Screen 02/06/2024 Depression Annual Screen 02/06/2024 Imm-Zoster, Recombinant Completed 04/08/2019, 12/07 Insurance [employer] [facility] Member Subscriber Plan / Payer (Ef fective 2013-Present) Name:Bj Renteria Relation to Subscriber:Self Name:Bj Renteria Payer ID:[id number] Type:Indemnity Address: [facility] [address] [place] [address]
== END 2024-06-18 13:55 | disposition home or self-care (01) ==
LOC: HO.HMGCX 13:54
PROVIDERS: PCP Internal Medicine; Visit Provider Internal Medicine
DX: I65.29 Occlusion and stenosis of unspecified carotid artery (principal); I49.9 Cardiac arrhythmia, unspecified
CPT/HCPCS: 93880

== ENCOUNTER → 2024-06-18 13:55 | Outpatient (BNV) | payer BC, SELFPAY | PROVIDERS: PCP Internal Medicine; Visit Provider Radiology Diagnostic Radiology | DX: I49.9 Cardiac arrhythmia, unspecified (principal) | CPT/HCPCS: 93880 ==

== ENCOUNTER 2024-06-24 13:21 | Outpatient (REF) | payer BC, SELFPAY ==
--- OUTSIDE RECORDS SUMMARY | 2024-06-24 14:30 | XMS_ITS | Clinical Summary ---
Author Organization [facility] Address [address] [place] [address] Care Team Providers Care Seamer Name Role Phone Unavailable Primary Care Provider [...] Aortic Aneurysm Screening 2018 Falls Prevention 2018 Spe-PMQIM-08 (3 - season) 2023 021, 04/21/2020 Imm-Influenza (#1) 2023 12/09/2017 Alcohol and Drug Screen 02/06/2024 Depression Annual Screen 02/06/2024 Imm-Zoster, Recombinant Completed 04/08/2019, 12/07 Insurance [employer] [facility] Member Subscriber Plan / Payer (Ef fective 2013-Present) Name:Bj Renteria Relation to Subscriber:Self Name:Bj Renteria Payer ID:[id number] Type:Indemnity Address: [facility] [id number] [place] [address]
[2024-06-24 16:44] LABS: Hematocrit 41.2 % (42.0-52.0); Hemoglobin 13.9 g/dl (14.0-18.0); Mean Corpuscular HGB Conc 33.7 g/dl (31.0-36.0); Mean Platelet Volume 9.6 fL (9.4-12.4); Platelet Count 232 X10*3/uL (160-400); Red Blood Count 4.63 X10*6/uL (4.60-5.80); Red Cell Distribution Width 12.9 % (11.0-16.0); White Blood Count 4.1 X10*3/uL (4.8-10.8)
[2024-06-24 17:08] LABS: Prostate Specific Antigen 5.51 ng/mL (<0.05-4.0)
[2024-06-29 14:44] LABS: Testosterone, Total 434 ng/dL (250-1100)
== END 2024-06-24 13:22 | disposition home or self-care (01) ==
LOC: HO.HMGCLDS 13:21
PROVIDERS: PCP Internal Medicine; Visit Provider Urology
DX: E29.1 Testicular hypofunction (principal); Z12.5 Encounter for screening for malignant neoplasm of prostate
CPT/HCPCS: 36415; 84153; 84403; 85027

== ENCOUNTER 2024-08-18 13:39 | Outpatient (AMB) | payer BC, SELFPAY ==
--- NOTE | 2024-08-18 13:40 | A.OFFVIS_ITS ---
Intake Visit Reasons: 6M PSA/Testo ([phone]) Intake Note: Patient is present for 6M/PSA/TESTO Urology Medication:TAMSULOSIN,TESTOSTERONE Antibiotic Allergy:NONE Blood Thinner:NONE Patient Care Provider Required: No Allergies iohexol (From Omnipaque) Adverse Reaction (Mild, Verified 08/18/24 13:41) Hives Shellfish Allergy (Unknown, Uncoded 08/18/24 13:41) Unknown HPI Comments Details: Bj JOSE is a very pleasant male. He is a patient of Dr Boyd. He is seen for the following urologic conditions. - hypogonadism - prostatitis Telemedicine Evaluation 15 min Consultation Agradis Yohan Video Six month review PSA and T remaining stable Continue with testosterone replacement - will aim for 2 pumps daily Review in 6 months Hypogonadism in the setting of diabetes He presents today for Discussed current T levels Testosterone in normal range continue to follow every 6 months Initial symptoms include erectile dysfunction Yes decreased libido Yes change in mood/depression Yes in muscle size/strength Yes increased fatigue/malaise Yes increased abdominal fat No tender breasts/gynecomastia No hair loss No osteopenia No The onset of symptoms has been gradual. Laboratory results 08/22 , baseline, testosterone 205 09/22 T 404 10/23 T 606 F 120 04/23 T 267 PSA 2.43, 05/24 T 220, 07/24 T 330 F 62, 10/24 T 330 F 58 03/27 T 440, PSA 2.3, Hct 48, 09/24 T 285 PSA 2.8, 04/25 testosterone 340, PSA 6.8, 06/25 4.4, 12/26 T 360 P 2.9, 06/26 295 3.3, 12/27 T 2.6 T 502, 06/27 673 P 3.6, 01/27 T pend PSA 4.3, 07/29 4.9 T 607, 01/28 4.0, 06/29 434 5.5 Current therapy includes 10/23 Androgel 3 pumps. Diagnosis based on history and laboratory results Primary testicular failure. Therapuetic plan continue current medication - repeat labs in 6m Lower Urinary Tract Symptoms: On Flomax 0.8 mg daily. Current visit is for further evaluation of, lower urinary tract symptoms, predominate obstructive symptoms. Current treatment includes medication, alpha axel. Prostate Symptom Score Moderate (9-19), Bother 3. Symptoms include incomplete emptying, weak stream, and are progressing [facility] Medical History Verrucous carcinoma Diabetes mellitus, type II Weak urinary stream Low libido Hypogonadism in male Review of Systems Const All systems reviewed & are unremarkable except as noted in HPI and below Reports no additional complaints Resp Reports no additional complaints GI Reports no additional complaints Reports as per HPI Musc Reports no additional complaints Physical Exam Telemedicine evaluation Appropriate responses Regular breathing rate and rhythm HEENT Head: Yes normal to inspection Ears: hearing grossly normal bilaterally Eyes General: appearance normal, both eyes and all related structures Neck Neck: Yes normal visual inspection Chest Chest palpation & inspection: normal inspection of the chest Resp Effort & Inspection: normal respiratory effort and able to speak in complete sentences Telehealth Telehealth Location of provider rendering services: practice address Location of patient: address on file Patient Identification confirmed using: Name, : Yes Telehealth method: voice only Patient verbally consented to treatment: Yes Patient verbally consented to billing insurance company: Yes Patient informed of any privacy concerns related to visit: Yes Assessment & Plan Assessment & Plan (1) Hypogonadism in male: Code(s): E29.1 - Testicular hypofunction Category: Medical (2) Weak urinary stream: Code(s): R39.12 - Poor urinary stream Category: Medical Plan Continue AndroGel Six-month follow-up lab work office Orders: Orders Testosterone, Total 5 Months E29.1 - Testicular hypofunction Prostate Specific Antigen 5 Months E29.1 - Testicular hypofunction Hematocrit 5 Months E29.1 - Testicular hypofunction Medications: Refilled tamsulosin 0.8 mg (2 x 0.4 mg) PO BEDTIME 180 caps 1RF 90 days E29.1 - Testicular hypofunction testosterone apply 2 pumps over max area of ONE upper arm and shoulder 2 pumps topical DAILY 75 grams 5RF 28 days E29.1 - Testicular hypofunction Patient Instructions: This note is constructed using voice recognition software. While every effort has been made to ensure accuracy creative designer errors may have been included. Imaging studies, laboratory and physical exam results were discussed and reviewed in detail. No major barriers to patient understanding were identified. An opportunity to ask questions regarding the treatment plan was provided. All questions were answered. The patient expressed understanding and agreement with the above treatment plan. The patient is aware they should contact our office by phone for worsening of their current condition or the appearance of new urologic symptoms. Compliance is encouraged with any medications and followup testing that is ordered. It is a privilege to participate in the urologic care of your patient. If you have any questions or concerns regarding treatment for the above conditions, or other urologic issues, please do not hesitate to contact me. The office telephone contact is [phone]. Sincerely, Dr Marlo Marsh MD, [facility] - Urology Compassionate Specialist Care for the Genitourinary System Coding Level of Care Code Tele Est Pt Level 3 (05798) Complex EM visit Add On G2211 Diagnoses Hypogonadism in male E29.1 Weak urinary stream R39.12
--- OUTSIDE RECORDS SUMMARY | 2024-08-18 14:50 | XMS_ITS | Patient Health Record ---
Author Organization [facility] Address [address] [place] [id number] Care Team Providers Care Modeling Agent Name Role Phone Manoj Woodson Neil [phone] Reason For Referral No Information Plan Of Treatment No Information
--- OUTSIDE RECORDS SUMMARY | 2024-08-18 14:50 | XMS_ITS | Clinical Summary ---
Author Organization [facility] Address [address] [place] [address] Care Team Providers Care Principal Architectural Firm Name Role Phone Unavailable Primary Care Provider [...] Fecal DNA 1998 Flexible Sigmoidoscopy 1998 Imm-Pneumococcal 50+ (1 of 1 - PCV) 10/29/2003 Abdominal Aortic Aneurysm Screening 2018 Falls Prevention 2018 [id number] (3 - 2023- season) 2023 021, 04/21/2020 Alcohol and Drug Screen 02/06/2024 Depression Annual Screen 02/06/2024 Imm-Influenza (#1) 2024 12/09/2017 Imm-Zoster, Recombinant Completed 04/08/2019, 12/07 Insurance [place] [place] [employer]
== END 2024-08-18 14:08 | disposition home or self-care (01) ==
LOC: HO.HUSH 13:39
PROVIDERS: PCP Internal Medicine; Visit Provider Urology
DX: E29.1 Testicular hypofunction (principal); R39.12 Poor urinary stream
CPT/HCPCS: 99213

== ENCOUNTER 2024-08-28 14:55 | Outpatient (AMB) | payer BC, SELFPAY ==
--- NOTE | 2024-08-28 14:58 | MHC.PC.OV ---
Vital Signs 08/28/24 15:03 Height 5 ft 8.7 in Weight 168 lb 6 oz BMI 25.1 BP 126/70 Blood Pressure Location Rt brachial Position Sitting Respiration 20 Pulse 55 Pulse Source Pulse Oximeter Temp 98.3 F Temp Source Temporal Artery Scan Pulse Oximetry (%) 91 L Oxygen Delivery Method Room Air Intake Visit Reasons: phuc care() It Coordinator Required: No Accompanied by: Self / Same As Patient Allergies iohexol (From Omnipaque) Adverse Reaction (Mild, Verified 08/28/24 15:30) Hives Shellfish Allergy (Unknown, Uncoded 08/28/24 15:30) Unknown Medication List - Last Reconciled 08/28/24 by Harmony Cormier PA-C atorvastatin 10 mg PO DAILY blood-glucose sensor (Dexcom G6 Sensor device) As directed blood-glucose,e commerce merchandising coordinator,cont (Dexcom G6 Reset Merchandiser) As directed flash glucose sensor As directed tamsulosin 0.8 mg (2 x 0.4 mg) PO BEDTIME 90 days testosterone 2 pumps topical DAILY 28 days Tobacco use date assessed: 08/28/24 Fall risk assessment: No Falls in past year Last assessed Fall Risk: 08/28/24 Dental Screening Dental Screen Date: 08/28/24 Did you have a dental visit in the last 12 months?: Yes Did you have a dental problem in the last 6 months where you did not have access to dental care?: No Was dental information given to patient?: Patient has dentist HPI establish care() HPI Details The patient is a 68-year-old male presenting for new patient appointment for the management of multiple chronic conditions. The patient has a history of basal cell carcinoma, which required extensive surgical intervention including jaw reconstruction using tissue from the ankle. The surgery lasted 15 hours due to the spread of the tumor, followed by a couple of weeks of hospitalization and subsequent radiation therapy in [place]. The patient completed 30 sessions of radiation therapy three years ago and is currently considered a cancer survivor. The patient reports a chronic low white blood cell count, which is suspected to be a consequence of the cancer treatment. Additionally, the patient has anemia, potentially related to iron deficiency, and further iron studies are planned. The patient has elevated PSA levels and is under the care of a urologist, Dr. Marsh, for further management. The patient is prediabetic with a recent A1c of 7.7, and has a history of taking metformin and glipizide, but has managed to lose weight and is currently not on medication. The patient plans to modify his diet to improve his glycemic control. The patient has a history of asthma and uses albuterol as needed. Preventative care measures include a pending colon cancer screening with a stool test, which the patient has yet to complete. 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 [facility] Medical History (Updated 08/28/24 @ 17:30 by Harmony Cormier PA-C) Colon cancer screening Asthma Prediabetes Anemia Leukopenia Basal cell carcinoma Jaw wound General medical exam Verrucous carcinoma Diabetes mellitus, type II Weak urinary stream Low libido Hypogonadism in male Family History Father Cancer of spine Mother Stroke Social History Housing: House Alcohol intake: current Alcohol intake frequency: holidays/special occasions only Patient Tobacco Use Status: Former Tobacco user service: No Current occupational status: employed Cognitive needs: No Hearing needs: No Vision needs: Yes (reading/ cheaters) Questionnaire PHQ-9 Over the last 2 weeks, how often have you been bothered by any of the following problems? 1. Little interest or pleasure in doing things: not at all 2. Feeling down, depressed, or hopeless: not at all 3. Trouble falling or staying asleep, or sleeping too much: not at all 4. Feeling tired or having little energy: not at all 5. Poor appetite or overeating: not at all 6. Feeling bad about yourself - or that you are a failure or have let yourself or your family down: not at all 7. Trouble concentrating on things, such as reading the newspaper or watching television: not at all 8. Moving or speaking so slowly that other people could have noticed. Or the opposite - being so fidgety or restless that you have been moving around a lot more than usual: not at all 9. Thoughts that you would be better off or of hurting yourself in some way: not at all Total score: 0 Depression Screening Interpretation: Negative Depression Screening Done: Yes 89862 - PHQ-9 Billing: Yes Source: Developed by Drs. Manoj Westfall, Hannah Costa, Eliceo Zarate and colleagues, with an educational raegan from [employer]. Thrive Questionnaire Date Thrive assessed: 08/28/24 I am a: Patient What is your living situation today?: I have a steady place to live Within the past 12 months, did the food you bought not last and you didn't have the money to get more?: Never true Within the past 12 months, did you worry whether your food would run out before you got money to buy more?: Never true Do you have trouble paying for medicines?: No Do you have trouble getting transportation to medical appointments?: No Do you have trouble paying your heating and electricity bill?: No Do you have trouble taking care of your child, family member or friend?: No Do you have trouble with day-to-day activities such as bathing, preparing meals, shopping, managing finances, etc.?: No Are you currently unemployed and looking for a job?: No Are you interested in more education?: No Please select the resources that you would like help with: None THRIVE Score: 0 AUDIT C Alcohol Use Questionnaire (AUDIT-C) 1. How often do you have a drink containing alcohol?: Monthly or less 2. How many drinks containing alcohol do you have on a typical day when you are drinking?: 1 or 2 3. How often do you have six or more drinks on one occasion?: Never Total Score: 1 Score Reviewed/Action Taken: No MISTY-7 AMB Questionnaire MISTY-7 Date MISTY - 7 assessed: 08/28/24 Feeling nervous, anxious, or on edge: 0 = Not at all Not being able to stop or control worryin = Not at all Worrying too much about different things: 0 = Not at all Trouble relaxin = Not at all Being so restless that it is hard to sit still: 0 = Not at all Becoming easily annoyed or irritable: 0 = Not at all Feeling afraid as if something awful might happen: 0 = Not at all Total MISTY-7 score (0-4 normal; 5-9 mild; 10-14 moderate; 15-21 severe): 0 Source: Developed by Drs. Manoj Westfall, Hannah Costa, Eliceo Zarate and colleagues, with an educational raegan from [employer]. MISTY-7 Assessment Billing MISTY-7 Assessment Tool: MISTY-7 Assessment 82914 Review of Systems Const Details: - Hematologic: Reports chronic low white blood cell count. - Endocrine: Reports prediabetes with recent A1c of 7.7. - Respiratory: Reports history of asthma, uses albuterol as needed. - Gastrointestinal: Denies completion of colon cancer screening with stool test. Physical exam (Primary Care) Vital Signs: Last Vital Signs Temp 98.3 F 08/28/24 15:03 Pulse 55 08/28/24 15:03 Resp 20 08/28/24 15:03 BP 126/70 08/28/24 15:03 Pulse Ox 91 L 08/28/24 15:03 Oxygen Delivery Method Room Air 08/28/24 15:03 Care Plan Goal for BP management: <140/90 at Goal BMI result Body Mass Index 25.1 Tobacco/Smoking Status: Tobacco use Status Tobacco use date assessed 08/28/24 08/28/24 15:00 Patient Tobacco Use Status Former Tobacco user 08/28/24 15:15 PHQ-9: PHQ-9 Score PHQ-9: Total score 0 08/28/24 15:34 Depression Screening Interpretation: Negative Thrive Assessment: Date of Thrive Assessment Date Thrive assessed 08/28/24 08/28/24 15:00 Const Other: Appearance: Alert. Oriented X3. No acute distress. Head: Normal external exam. Normocephalic. Atraumatic. Eyes: Pupils are equal, round, and reactive to light. Extraocular movements intact. Conjunctiva and sclera normal. Eyelids normal. Throat: Pharynx normal. Uvula midline. Moist mucous membranes. Neck: Normal inspection. Neck supple. Full range of motion. No adenopathy. Thyroid Normal. No meningeal signs. No neck mass noted. Cardiovascular: Normal heart rate and rhythm. Back: Full range of motion noted. Skin: Skin warm and dry. Normal skin color. Normal skin turgor. No rashes/lesions/lacerations noted. Extremities: Extremities exhibit normal range of motion. Results AMB Hemoglobin A1c AMB Hemoglobin A1c 7.7 % Last Edit by NOHEMI Milton on 08/28/24 15:51 Results Reviewed Results Reviewed: - Labs: Chronic low white blood cell count noted in recent blood work. - Labs: Anemia suspected, iron studies planned. - Labs: Elevated PSA levels noted. - Labs: A1c of 7.7 indicating prediabetes. Coding Level of Care Code New Pt Level 4 (14871) Complex EM visit Add On G2211 Diagnoses Basal cell carcinoma C44.91 Leukopenia D72.819 Anemia D64.9 Elevated PSA R97.20 Prediabetes R73.03 Asthma J45.909 Colon cancer screening Z12.11 Additional Codes PHQ-9 - 92984 - PHQ-9 Billing: Yes ([id number]) MISTY-7 Assessment Billing - MISTY-7 Assessment Tool: MISTY-7 Assessment 57895 ([id number]) Time Spent (min) 45 Assessment & Plan Assessment & Plan (1) Basal cell carcinoma: Code(s): C44.91 - Basal cell carcinoma of skin, unspecified Category: Medical Plan: The patient has a history of basal cell carcinoma with extensive surgical intervention and radiation therapy completed three years ago. He is currently considered a cancer survivor and continues to have regular follow-ups. Condition is chronic and stable continue to monitor. (2) Leukopenia: Code(s): D72.819 - Decreased white blood cell count, unspecified Category: Medical Plan: The chronic low white blood cell count is likely a consequence of previous cancer treatment. Regular monitoring is recommended to assess any changes. Condition is chronic and stable continue to monitor. (3) Anemia: Code(s): D64.9 - Anemia, unspecified Category: Medical Plan: Anemia is suspected, potentially due to iron deficiency, and further iron studies are planned to confirm the diagnosis. Condition is chronic and stable continue to monitor. (4) Elevated PSA: Code(s): R97.20 - Elevated prostate specific antigen [PSA] Category: Medical Plan: The patient is under the care of a urologist for elevated PSA levels, and ongoing monitoring is in place. Condition is chronic and stable continue to monitor. (5) Prediabetes: Code(s): R73.03 - Prediabetes Category: Medical Plan: The patient is prediabetic with an A1c of 7.7 and plans to modify his diet to improve glycemic control. A follow-up in three months is planned to reassess A1c levels. Condition is chronic and stable continue to monitor. (6) Asthma: Code(s): J45.909 - Unspecified asthma, uncomplicated Category: Medical Plan: The patient has a history of asthma and uses albuterol as needed for symptom management. Condition is chronic and stable continue to monitor. (7) Colon cancer screening: Code(s): Z12.11 - Encounter for screening for malignant neoplasm of colon Category: Medical Plan: The patient has a pending colon cancer screening with a stool test, which he has yet to complete. Plan Plan Patient was informed and verbally consented to the use of an ambient scribe for clinic note documentation during this visit. 1. Basal Cell Carcinoma The patient has a history of basal cell carcinoma with extensive surgical intervention and radiation therapy completed three years ago. He is currently considered a cancer survivor and continues to have regular follow-ups. 2. Chronic Low White Blood Cell Count The chronic low white blood cell count is likely a consequence of previous cancer treatment. Regular monitoring is recommended to assess any changes. 3. Anemia Anemia is suspected, potentially due to iron deficiency, and further iron studies are planned to confirm the diagnosis. 4. Elevated Psa Levels The patient is under the care of a urologist for elevated PSA levels, and ongoing monitoring is in place. 5. Prediabetes The patient is prediabetic with an A1c of 7.7 and plans to modify his diet to improve glycemic control. A follow-up in three months is planned to reassess A1c levels. 6. Asthma The patient has a history of asthma and uses albuterol as needed for symptom management. 7. Preventative Care: Colon Cancer Screening With Stool Test The patient has a pending colon cancer screening with a stool test, which he has yet to complete. During the visit, we discussed the patient's history of basal cell carcinoma and the importance of regular follow-ups as a cancer survivor. We also addressed the chronic low white blood cell count and anemia, planning further iron studies to confirm the latter. The elevated PSA levels are being managed by a urologist, and the patient is advised to continue monitoring. For prediabetes, the patient plans to modify his diet, and a follow-up in three months is scheduled to reassess A1c levels. Asthma management includes the use of albuterol as needed. Preventative care measures include completing the pending colon cancer screening with a stool test. Orders: Orders AMB Hemoglobin A1c Today Z13.9 - Encounter for screening, unspecified C Reactive Protein Today Z00.00 - Encounter for general adult medical examination without abnormal findings Complete Blood Count Auto Diff Today Z00.00 - Encounter for general adult medical examination without abnormal findings Comprehensive [place]. Panel Fast Today Z00.00 - Encounter for general adult medical examination without abnormal findings Liver Panel Today Z00.00 - Encounter for general adult medical examination without abnormal findings Vitamin B12 and Folate Today Z00.00 - Encounter for general adult medical examination without abnormal findings Vitamin D 25-OH Total Today Z00.00 - Encounter for general adult medical examination without abnormal findings Triiodothyronine T3 Free Today Z00.00 - Encounter for general adult medical examination without abnormal findings Triiodothyronine T3 Total Today Z00.00 - Encounter for general adult medical examination without abnormal findings Magnesium Today Z00.00 - Encounter for general adult medical examination without abnormal findings IRON PROFILE Today D64.9 - Anemia, unspecified Ferritin Today D64.9 - Anemia, unspecified TSH reflex Free T4 Today Z00.00 - Encounter for general adult medical examination without abnormal findings Lipid Panel Today Z00.00 - Encounter for general adult medical examination without abnormal findings Referrals Wound Care Referral S01.80XA - Unspecified open wound of other part of head, initial encounter Medications: New albuterol sulfate 90 mcg/actuation (Ventolin HFA) 2 puffs inhalation QID 8.5 grams 3RF Patient Instructions: - Schedule and complete the pending colon cancer screening with the stool test. - Follow up with Dr. Marsh for elevated PSA levels. - Modify diet to improve glycemic control and return for follow-up in three months to reassess A1c levels. - Use albuterol as needed for asthma symptoms. - Attend regular follow-ups for cancer surveillance.
--- OUTSIDE RECORDS SUMMARY | 2024-08-28 15:02 | XMS_ITS | Patient Health Record ---
Author Organization [facility] Address [address] [place] [id number] Care Team Providers Care Equal Employment Opportunity Officer Name Role Phone Manoj Woodson Neil [phone] Reason For Referral No Information Plan Of Treatment No Information
--- OUTSIDE RECORDS SUMMARY | 2024-08-28 15:02 | XMS_ITS | Encounter Summary ---
Author Organization [facility] Address [address] [place] [address] [place] [phone] Phone Care Team Providers Care Cable Maintainer Name Role Phone Carlos Boyd MD Primary Care Provider [phone] Self-Referred, Patient Unavailable Unavailab Genaro Alfaro MD, DMD Unavailable [phone] Andre Reed MD Primary Care Provid er Encounter Details Date Type Department Care Team (Late st Contact Info) Description 05/24/2020 [facility] for [facility] [place] [address] [place] [address], [address] [place] [address] Genaro Jarquin MD, DMD [address] [place] [address] [email or web address] Malignant neoplasm of lower gingiva (Primary Dx) Social History Tobacco Use Types Packs/Day Years Used Date Smoking Tobacco: Every Day Cigarettes 1 20 Smokeless Tobacco: Never Comments:Currently vaping. 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 Not on file Not on file documented as of this encounter Plan of Treatment Upcoming Encounters Date Type Department Care Team (Late st Contact Info) Description 02/25/2025 3:00 PM EST [facility] [place] [address] [place] [address], [address] [place] [address] Genaro Jarquin MD, DMD [address] [place] [address] [email or web address] documented as of this encounter Visit Diagnoses Diagnosis Malignant neoplasm of lower gingiva- Primary documented in this encounter Care Teams Cable Maintainer Relationship Specialty Start Date End Date Carlos Boyd MD [address] [place] [address] PCP - General Internal Medicine 10/31/17 08/19/24 Andre Reed MD [address] [place] [address] PCP - General Internal Medicine 08/20/24 Self-Referred, Patient Referring Physician 10/31/17 Genaro Jarquin MD, DMD [email or web address] Otolaryngology 03/21/18 documented as of this encounter Additional Source Comments The information contained in this document represents components of the legal health record. It is not the complete legal health record.[facility]
--- OUTSIDE RECORDS SUMMARY | 2024-08-28 15:02 | XMS_ITS | Clinical Summary ---
Author Organization [facility] Address [address] [place] [address] Care Team Providers Care Field Marketing Coordinator Name Role Phone Unavailable Primary Care Provider [...] Aortic Aneurysm Screening 2018 Falls Prevention 2018 [id number] (3 - 2023- season) 2023 021, 04/21/2020 Alcohol and Drug Screen 02/06/2024 Depression Annual Screen 02/06/2024 Imm-Influenza (#1) 2024 12/09/2017 Imm-Zoster, Recombinant Completed 04/08/2019, 12/07 Insurance [place] [employer]
[2024-08-28 15:03] VITALS: BP 126/70; PULSE 55; RESP 20; TEMP 36.8; O2SAT 91; BMI 25.1
== END 2024-08-28 15:54 | disposition home or self-care (01) ==
LOC: HO.HMCSH 14:56
PROVIDERS: PCP Internal Medicine; Visit Provider Physician Assistant Medical
DX: C44.91 Basal cell carcinoma of skin, unspecified (principal); D72.819 Decreased white blood cell count, unspecified; D64.9 Anemia, unspecified; R97.20 Elevated prostate specific antigen [PSA]; R73.03 Prediabetes; J45.909 Unspecified asthma, uncomplicated; Z12.11 Encounter for screening for malignant neoplasm of colon; Z13.9 Encounter for screening, unspecified

== ENCOUNTER → 2024-08-28 14:55 | Outpatient (BNVA) | payer BC, SELFPAY | PROVIDERS: PCP Internal Medicine; Visit Provider Physician Assistant Medical | DX: D72.819 Decreased white blood cell count, unspecified (principal); D64.9 Anemia, unspecified; R97.20 Elevated prostate specific antigen [PSA]; R73.03 Prediabetes; J45.909 Unspecified asthma, uncomplicated; Z85.828 Personal history of other malignant neoplasm of skin; Z13.31 Encounter for screening for depression; Z13.39 Encounter for screening examination for other mental health and behavioral disorders | CPT/HCPCS: 83036; 96127 ==

== ENCOUNTER 2024-08-30 13:42 | Outpatient (REF) | payer BC, SELFPAY ==
--- OUTSIDE RECORDS SUMMARY | 2024-08-30 13:45 | XMS_ITS | Clinical Summary ---
Author Organization [facility] Address [address] [place] [address] Care Team Providers Care Climatologist Name Role Phone Unavailable Primary Care Provider [...] Aortic Aneurysm Screening 2018 Falls Prevention 2018 [id number]-[id number] (3 - 2023- season) 2023 021, 04/21/2020 Alcohol and Drug Screen 02/06/2024 Depression Annual Screen 02/06/2024 Imm-Influenza (#1) 2024 12/09/2017 Imm-Zoster, Recombinant Completed 04/08/2019, 12/07 Insurance [place] [employer]
--- OUTSIDE RECORDS SUMMARY | 2024-08-30 13:45 | XMS_ITS | Encounter Summary ---
Author Organization [facility] Address [address] [place] [address] [place] [phone] Phone Care Team Providers Care Hand Rigger Name Role Phone Calros Boyd MD Primary Care Provider [phone] Self-Referred, Patient Unavailable Unavailab Genaro Alfaro MD, DMD Unavailable [phone] Andre Reed MD Primary Care Provid er Encounter Details Date Type Department Care Team (Late st Contact Info) Description 05/24/2020 [facility] for [facility] [place] [address] [place] [address], [address] [place] [address] Genaro Jarquin MD, DMD [address] [place] [address] [email or web address] Malignant neoplasm of lower gingiva [...] 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 Not on file Not on file documented as of this encounter Plan of Treatment Upcoming Encounters Date Type Department Care Team (Late st Contact Info) Description 02/25/2025 3:00 PM EST Office [facility] [place] [address] [place] [address], [address] [place] [address] Genaro Jarquin MD, DMD [address] [place] [address] [email or web address] documented as of this encounter Visit Diagnoses Diagnosis Malignant neoplasm of lower gingiva- Primary documented in this encounter Care Teams Hand Rigger Relationship Specialty Start Date End Date Carlos Boyd MD [address] [place] [address] PCP - General Internal Medicine 10/31/17 08/19/24 Andre Reed MD [address] [place] [address] PCP - General Internal Medicine 08/20/24 Self-Referred, Patient Referring Physician 10/31/17 Genaro Jarquin MD, DMD [email or web address] Otolaryngology 03/21/18 documented as of this encounter Additional Source Comments The information contained in this document represents components of the legal health record. It is not the complete legal health record.[facility]
--- OUTSIDE RECORDS SUMMARY | 2024-08-30 13:45 | XMS_ITS | Patient Health Record ---
Author Organization [facility] Address [address] [place] [address] Care Team Providers Care Panama Hat Blocker Name Role Phone Manoj Woodson Neil [phone] Reason For Referral No Information Plan Of Treatment No Information
[2024-08-30 15:11] LABS: MANUAL DIFF FLAG NO
[2024-08-30 15:14] LABS: Hematocrit 42.4 % (42.0-52.0); Hemoglobin 14.7 g/dl (14.0-18.0); Imm Gran Abs Auto 0.02 X10*3/uL (0.00-0.03); Imm Gran Pct Auto 0.4 % (0.0-0.4); Lymphocytes Absolute Auto 1.2 X10*3/uL (1.2-4.9); Mean Corpuscular HGB Conc 34.7 g/dl (31.0-36.0); Mean Corpuscular Hemoglobin 30.1 pg (27.0-33.0); Mean Corpuscular Volume 86.9 fL (80.0-98.0); NRBC Abs Auto 0.000 X10*3/uL (0.0-0.012); NRBC Pct Auto 0.0 /100WBC (0.0-0.2); Platelet Count 232 X10*3/uL (160-400); Red Blood Count 4.88 X10*6/uL (4.60-5.80); White Blood Count 4.9 X10*3/uL (4.8-10.8)
[2024-08-30 15:34] LABS: Alanine Aminotransferase 23 U/L (0-40); Albumin Level 4.3 g/dL (3.5-5.0); Alkaline Phosphatase 81 U/L (39-117); Anion Gap 12 (12-20); Aspartate Amino Transferase 25 U/L (5-37); Blood Urea Nitrogen 13 mg/dL (9-16); Calcium 9.4 mg/dL (8.4-10.2); Carbon Dioxide 24 mmol/L (22-29); Chloride 108 mmol/L (96-108); Cholesterol 134 mg/dL (<200); Estimated Glomerular Filt Rate > 60; HDL Cholesterol 39 mg/dL (>40); Iron 130 mcg/dL (45-160); Magnesium 2.0 mg/dL (1.6-2.6); Percent Iron Saturation 58 % (15-50); Potassium 4.2 mmol/L (3.3-5.1); Sodium 140 mmol/L (135-145); Total Iron Binding Capacity 226 mcg/dL (228-428); Total Protein 6.7 g/dL (6.5-8.0); Triglycerides 95 mg/dL (<150); Unsaturated Iron Binding 96 ug/dL
[2024-08-30 15:50] LABS: Ferritin 136 ng/mL (20-250)
[2024-08-30 16:06] LABS: Folate 5.9 ng/mL (> or = 4.0); Vitamin B12 272 pg/mL (200-900)
== END 2024-08-30 13:43 | disposition home or self-care (01) ==
LOC: HO.HMGCLDS 13:42
PROVIDERS: PCP Internal Medicine; Visit Provider Physician Assistant Medical
DX: Z00.00 Encounter for general adult medical examination without abnormal findings (principal); D64.9 Anemia, unspecified
CPT/HCPCS: 36415; 80053; 80061; 80076; 82248; 82306; 82607; 82728; 82746; 83540; 83735; 84443; 84480; 84481; 85025; 86140

== ENCOUNTER 2024-09-12 14:34 | Outpatient (REF) | payer BC, SELFPAY ==
--- OUTSIDE RECORDS SUMMARY | 2024-09-12 14:36 | XMS_ITS | Clinical Summary ---
Author Organization [facility] Address [address] [place] [address] Care Team Providers Care Child Life Therapist Name Role Phone Unavailable Primary Care Provider [...] Aortic Aneurysm Screening 2018 Falls Prevention 2018 Vwo-[id number] (3 - 2023- season) 2023 021, 04/21/2020 Alcohol and Drug Screen 02/06/2024 Depression Annual Screen 02/06/2024 Imm-Influenza (#1) 2024 12/09/2017 Imm-Zoster, Recombinant Completed 04/08/2019, 12/07 Insurance [place] [employer]
--- OUTSIDE RECORDS SUMMARY | 2024-09-12 14:36 | XMS_ITS | Patient Health Record ---
Author Organization [facility] Address [address] [place] [address] Care Team Providers Care Tip Mender Name Role Phone Manoj Woodson Neil [phone] Reason For Referral No Information Plan Of Treatment No Information
[2024-09-12 16:45] LABS: Iron 86 mcg/dL (45-160); Percent Iron Saturation 39 % (15-50); Total Iron Binding Capacity 223 mcg/dL (228-428); Unsaturated Iron Binding 137 ug/dL
[2024-09-12 16:52] LABS: Ferritin 99 ng/mL (20-250)
[2024-09-13 04:34] LABS: Transferrin 192 mg/dL (188-341)
== END 2024-09-12 14:35 | disposition home or self-care (01) ==
LOC: HO.HMGCLDS 14:34
PROVIDERS: PCP Dentist General Practice; Visit Provider Physician Assistant Medical
DX: D64.9 Anemia, unspecified (principal)
CPT/HCPCS: 36415; 82728; 83540; 84466

== ENCOUNTER 2024-09-30 13:34 | Outpatient (RCR) | payer BC, SELFPAY | END 2024-09-30 16:39 | disposition home or self-care (01) | LOC: HO.WCC 13:34 | PROVIDERS: PCP Internal Medicine; Visit Provider Surgery | DX: M27.2 Inflammatory conditions of jaws (principal); E11.9 Type 2 diabetes mellitus without complications; Y84.2 Radiological procedure and radiotherapy as the cause of abnormal reaction of the patient, or of later complication, without mention of misadventure at the time of the procedure; Y82.9 Unspecified medical devices associated with adverse incidents; Z09 Encounter for follow-up examination after completed treatment for conditions other than malignant neoplasm; Z87.2 Personal history of diseases of the skin and subcutaneous tissue; Z85.818 Personal history of malignant neoplasm of other sites of lip, oral cavity, and pharynx; Z87.891 Personal history of nicotine dependence | CPT/HCPCS: 99214 ==

== ENCOUNTER 2024-11-27 13:55 | Outpatient (AMB) | payer BC, SELFPAY ==
[2024-11-27 14:01] VITALS: BP 183/79; PULSE 62; TEMP 36.7; O2SAT 96; BMI 25.5
--- NOTE | 2024-11-27 14:01 | A.OFFPC_ITS ---
Vital Signs 11/27/24 14:01 11/27/24 16:56 Height 5 ft 8.7 in Weight 171 lb BMI 25.5 BP 183/79 H 155/70 H Blood Pressure Location Lt brachial Position Sitting Pulse 62 Pulse Source Pulse Oximeter Temp 98.0 F Temp Source Temporal Artery Scan Pulse Oximetry (%) 96 Oxygen Delivery Method Room Air Intake Visit Reasons: 3 month follow up - see comments Digital Color Press Operator Required: No Accompanied by: Self / Same As Patient Allergies iohexol (From [place]) Adverse Reaction (Mild, Verified 11/27/24 16:56) Hives Shellfish Allergy (Unknown, Uncoded 11/27/24 16:56) Unknown Medication List - Last Reconciled 11/27/24 by Harmony Cormier PA-C albuterol sulfate 90 mcg/actuation (Ventolin HFA) 2 puffs inhalation QID atorvastatin 10 mg PO DAILY blood pressure test kit-medium check BP daily blood-glucose sensor (Dexcom G6 Sensor device) As directed blood-glucose,sample room supervisor,cont (Dexcom G6 Agriculture Manager) As directed flash glucose sensor As directed tamsulosin 0.8 mg (2 x 0.4 mg) PO BEDTIME 90 days testosterone 2 pumps topical DAILY 28 days Tobacco use date assessed: 11/27/24 Fall risk assessment: No Falls in past year Last assessed Fall Risk: 11/27/24 Dental Screening Dental Screen Date: 11/27/24 Did you have a dental visit in the last 12 months?: Yes Did you have a dental problem in the last 6 months where you did not have access to dental care?: No Was dental information given to patient?: Patient has dentist HPI 3 month follow up - see comments HPI Details The patient is a 69-year-old male presenting with a follow-up visit for diabetes management and evaluation of blood pressure. The patient has a history of Type 2 Diabetes Mellitus, with a recent hemoglobin A1c of 7.4%, improved from 7.7% in August 2024. He has managed his diabetes primarily through diet control, having previously been on metformin but discontinued due to side effects. The patient has lost 50 pounds and maintains a low food intake, contributing to his diabetes management. The patient reports a history of hypertension, with recent blood pressure readings of 183/79 mmHg and 155/70 mmHg. He has not previously had issues with hypertension and prefers to manage it without medication initially. Social History - Exercise: Acknowledges the need for mo re exercise. - Weight Management: Lost 50 pounds thro ugh dietary changes. [facility] Medical History (Updated 11/27/24 @ 17:01 by Harmony Cormier PA-C) Hypertension Diabetes mellitus type 2, diet-controlled Colon cancer screening Asthma Prediabetes Anemia Leukopenia Basal cell carcinoma Jaw wound General medical exam Verrucous carcinoma Diabetes mellitus, type II Weak urinary stream Low libido Hypogonadism in male Family History Father Cancer of spine Mother Stroke Social History Housing: House Alcohol intake: current Alcohol intake frequency: holidays/special occasions only Patient Tobacco Use Status: Former Tobacco user service: No Current occupational status: employed Cognitive needs: No Hearing needs: No Vision needs: Yes (reading/ cheaters) Questionnaire PHQ-9 Over the last 2 weeks, how often have you been bothered by any of the following problems? 1. Little interest or pleasure in doing things: not at all 2. Feeling down, depressed, or hopeless: not at all 3. Trouble falling or staying asleep, or sleeping too much: not at all 4. Feeling tired or having little energy: not at all 5. Poor appetite or overeating: not at all 6. Feeling bad about yourself - or that you are a failure or have let yourself or your family down: not at all 7. Trouble concentrating on things, such as reading the newspaper or watching television: not at all 8. Moving or speaking so slowly that other people could have noticed. Or the opposite - being so fidgety or restless that you have been moving around a lot more than usual: not at all 9. Thoughts that you would be better off or of hurting yourself in some way: not at all Total score: 0 Depression Screening Interpretation: Negative Depression Screening Done: Yes 53679 - PHQ-9 Billing: Yes Source: Developed by Drs. Manoj Westfall, Hannah Costa, Eliceo Zarate and colleagues, with an educational raegan from [employer]. Thrive Questionnaire Date Thrive assessed: 10/23/25 I am a: Patient What is your living situation today?: I have a steady place to live Within the past 12 months, did the food you bought not last and you didn't have the money to get more?: Never true Within the past 12 months, did you worry whether your food would run out before you got money to buy more?: Never true Do you have trouble paying for medicines?: No Do you have trouble getting transportation to medical appointments?: No Do you have trouble paying your heating and electricity bill?: No Do you have trouble taking care of your child, family member or friend?: No Do you have trouble with day-to-day activities such as bathing, preparing meals, shopping, managing finances, etc.?: No Are you currently unemployed and looking for a job?: No Are you interested in more education?: No Please select the resources that you would like help with: None THRIVE Score: 0 AUDIT C Alcohol Use Questionnaire (AUDIT-C) 1. How often do you have a drink containing alcohol?: Monthly or less 2. How many drinks containing alcohol do you have on a typical day when you are drinking?: 1 or 2 3. How often do you have six or more drinks on one occasion?: Never Total Score: 1 Score Reviewed/Action Taken: No MISTY-7 AMB Questionnaire MISTY-7 Date MISTY - 7 assessed: 11/27/24 Feeling nervous, anxious, or on edge: 0 = Not at all Not being able to stop or control worryin = Not at all Worrying too much about different things: 0 = Not at all Trouble relaxin = Not at all Being so restless that it is hard to sit still: 0 = Not at all Becoming easily annoyed or irritable: 0 = Not at all Feeling afraid as if something awful might happen: 0 = Not at all Total MISTY-7 score (0-4 normal; 5-9 mild; 10-14 moderate; 15-21 severe): 0 Source: Developed by Drs. Manoj Westfall, Hannah Costa, Eliceo Zarate and colleagues, with an educational raegan from [employer] MISTY-7 Assessment Billing MISTY-7 Assessment Tool: MISTY-7 Assessment 25972 Review of Systems Const Details: - Endocrine: Reports improved glycemic control with diet. - Cardiovascular: Denies previous issues with hypertension. 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 All systems reviewed & are unremarkable except as noted in HPI and below Physical exam (Primary Care) Vital Signs: Last Vital Signs Temp 98.0 F 11/27/24 14:01 Pulse 62 11/27/24 14:01 BP 183/79 H 11/27/24 14:01 Pulse Ox 96 11/27/24 14:01 Oxygen Delivery Method Room Air 11/27/24 14:01 Care Plan Goal for BP management: <140/90 patient will return in 1 week with blood pressure diary and improve his diet BMI result Body Mass Index 25.5 BMI Assessment/Plan discussion: High BMI High, discussed plan: lifestyle, weight reduction, dietary, physical activity, alcohol moderation and other Tobacco/Smoking Status: Tobacco use Status Tobacco use date assessed 11/27/24 11/27/24 14:03 Patient Tobacco Use Status Former Tobacco user 11/27/24 14:03 PHQ-9: PHQ-9 Score PHQ-9: Total score 0 11/27/24 14:33 Depression Screening Interpretation: Negative Thrive Assessment: Date of Thrive Assessment Date Thrive assessed 11/27/24 11/27/24 14:03 Const Other: Appearance: Alert. Oriented X3. No acute distress. Head: Normal external exam. Normocephalic. Atraumatic. Eyes: Pupils are equal, round, and reactive to light. Extraocular movements intact. Conjunctiva and sclera normal. Eyelids normal. Throat: Pharynx normal. Uvula midline. Moist mucous membranes. Neck: Normal inspection. Neck supple. Full range of motion. Cardiovascular: Normal heart rate and rhythm. Heart sound normal. No murmurs noted. Pulses normal throughout. Blood pressure recorded at 155/70, indicating stage one hypertension. Respiratory: No respiratory distress. Painless inspiration. Breath sounds normal. No wheezes/rales/rhonchi noted. Chest nontender. No accessory muscle usage noted or decreased air movement noted. Back: Full range of motion noted. Skin: Skin warm and dry. Normal skin color. Normal skin turgor. No rashes/lesions/lacerations noted. Extremities: Extremities exhibit normal range of motion. Neuro: Oriented X 3. No motor deficit. No sensory deficit. Reflexes normal. Office Procedures Flu Questionnaire Does the patient have a severe egg allergy?: No Does the patient have severe life threatening allergies?: No Does the patient have a fever or illness today?: No Has the patient ever had Guillain-[place] Syndrome?: No Has the patient ever had any past reaction to a flu shot?: No Results AMB Hemoglobin A1c AMB Hemoglobin A1c 7.4 % Last Edit by Khadra Louis CMA on 11/27/24 14:3 4 Immunizations Fluarix [id number] (PF) 45 mcg (15 mcg x 3)/0.5 mL IM syringe Performing Provider: Harmony Cormier PA-C [facility] Administered by: Khadra Louis CMA on 11/27/24 14:14 Dose Route Admin Location Dispensed Lot Number Expiration Date [facility] Sales Support Associate 0.5 mL IM Left Deltoid 0.5 mL [id number] 08/04/25 [id number] [employer] VIS Given Date VIS Provided VIS Publication Date 11/27/24 Single Vaccine 24 Eligibility Eligibility Date Funding Source Not [facility] Eligible 11/27/24 Private Results Reviewed Results Reviewed: Laboratory Last Values Hgb A1c (Clinic) 7.4 % (4.0-6.0) H 11/27/24 14:20 - Labs: Hemoglobin A1c at 7.4%, previously 7.7% in August 2024 Coding Level of Care Code Est Pt Level 4 (28484) Complex EM visit Add On G2211 Diagnoses Diabetes mellitus type 2, diet-controlled E11.9 Hypertension I10 Additional Codes MISTY-7 Assessment Billing - MISTY-7 Assessment Tool: MISTY-7 Assessment 37390 ([id number]) PHQ-9 - 54445 - PHQ-9 Billing: Yes ([id number]) Assessment & Plan Assessment & Plan (1) Diabetes mellitus type 2, diet-controlled: Code(s): E11.9 - Type 2 diabetes mellitus without complications Category: Medical Plan: The patient's diabetes is currently managed through dietary control, with an improvement in hemoglobin A1c from 7.7% to 7.4%. Continued monitoring of blood glucose levels and maintaining dietary habits are recommended. (2) Hypertension: Code(s): I10 - Essential (primary) hypertension Category: Medical Plan: The patient presented with elevated blood pressure readings of 183/79 mmHg and 155/70 mmHg. A follow-up visit in one week is planned to reassess blood pressure, with lifestyle modifications such as reducing salt intake and monitoring at home advised. Plan Plan Patient was informed and verbally consented to the use of an ambient scribe for clinic note documentation during this visit. 1. Type 2 Diabetes Mellitus The patient's diabetes is currently managed through dietary control, with an improvement in hemoglobin A1c from 7.7% to 7.4%. Continued monitoring of blood glucose levels and maintaining dietary habits are recommended. 2. Hypertension The patient presented with elevated blood pressure readings of 183/79 mmHg and 155/70 mmHg. A follow-up visit in one week is planned to reassess blood pressure, with lifestyle modifications such as reducing salt intake and monitoring at home advised. During the visit, we discussed the patient's diabetes management, noting the improvement in A1c levels and the importance of maintaining dietary control. For hypertension, we agreed on a follow-up visit in one week to reassess blood pressure, with lifestyle modifications recommended in the interim. Orders: Orders Influenza [id number] Immunization Today Z23 - Encounter for immunization AMB Hemoglobin A1c Today Z13.9 - Encounter for screening, unspecified Medications: New blood pressure test kit-medium check BP daily 1 ea 0RF atorvastatin 10 mg PO DAILY 90 tabs 3RF Patient Instructions: - Monitor blood glucose levels regularly and maintain dietary habits to manage diabetes. - Reduce salt intake and monitor blood pressure at home. - Return for a follow-up visit in one week to reassess blood pressure.
[2024-11-27 16:56] VITALS: BP 155/70
--- OUTSIDE RECORDS SUMMARY | 2024-11-27 17:47 | XMS_ITS | Encounter Summary ---
Author Organization [facility] Address [address] [place] [address] [place] [address] Phone Care Team Providers Care Patient Service Technician Pst Name Role Phone Carlos Boyd MD Primary Care Provider [phone] Self-Referred, Patient Unavailable Unavailab Saji Jaime MD, PhD Unavailable + [phone] Genaro Jarquin MD, DMD Unavailable [phone] Andre Reed MD Primary Care Provid er Encounter Details Date Type Department Care Team (Late st Contact Info) Description 11/08/2017 Procedure Pass DF IMG OUTSIDE IMG [address] [place] [address] Social History Tobacco Use Types Packs/Day Years Used Date Smoking Tobacco: Never Assessed Sex and Gender Information Value Date Recorded Sex Assigned at Not on file Legal Sex Male 3:43 PM EDT Gender Identity Not on file Sexual Orientation Not on file documented as of this encounter Plan of Treatment Upcoming Encounters Date Type Department Care Team (Late st Contact Info) Description 02/25/2025 3:00 PM EST Office Visit [facility], [facility] [place] [address] [facility], [address]th [place] [address] Genaro Jarquin MD, DMD [address] [place] [address] [email or web address] documented as of this encounter Visit Diagnoses Not on filedocumented in this encounter Care Teams Patient Service Technician Pst Relationship Specialty Start Date End Date Carlos Boyd MD [address] [place] [address] PCP - General Internal Medicine 10/31/17 08/19/24 Andre Reed MD [address] [place] [address] PCP - General Internal Medicine 08/20/24 Self-Referred, Patient Referring Physician 10/31/17 Saji Douglas MD, PhD [address] [place] [id number] [email or web address]. [place] Radiation Oncology 11/14/17 03/20/18 Genaro Jarquin MD, DMD [address] [place] [phone] [email or web address] Otolaryngology 03/21/18 documented as of this encounter Additional Source Comments The information contained in this document represents components of the legal health record. It is not the complete legal health record.[facility]
--- OUTSIDE RECORDS SUMMARY | 2024-11-27 17:47 | XMS_ITS | Clinical Summary ---
Author Organization [facility] Address [address] [place] [address] Care Team Providers Care Therapeutic Radiologist Name Role Phone Unavailable Primary Care Provider [...] Health Maintenance Due Date Last Done Comments Hepatitis C Screening 1955 Lipid Screening 1955 Tobacco Screening 1955 Hypertension Screening (#1) 10/29/1971 Imm-DTaP/Tdap/Td (1 - Tdap) 1972 CT Colonography 1998 Colonoscopy 1998 Colorectal Cancer Screening 1998 FIT/gFOBT 1998 Fecal DNA 1998 Flexible Sigmoidoscopy 1998 Imm-Pneumococcal 50+ (1 of 1 - PCV) 10/29/2003 Abdominal Aortic Aneurysm Screening 2018 Falls Prevention 2018 Alcohol and Drug Screen 02/06/2024 Depression Annual Screen 02/06/2024 Gtc-[id number] (3 - season) 2024 021, 04/21/2020 Imm-Influenza (#1) 2024 12/09/2017 Imm-Zoster, Recombinant Completed 04/08/2019, 12/07 Insurance [facility]
--- OUTSIDE RECORDS SUMMARY | 2024-11-27 17:47 | XMS_ITS | Encounter Summary ---
Author Organization [facility] Address [address] [place] [address] [place] [address] Phone Care Team Providers Care Nutrition Counselor Name Role Phone Carlos Boyd MD Primary Care Provider [phone] Self-Referred, Patient Unavailable Unavailab Saji Jaime MD, PhD Unavailable + [phone] Genaro Jarquin MD, DMD Unavailable [phone] Andre Reed MD Primary Care Provid er Encounter Details Date Type Department Care Team (Late st Contact Info) Description 11/08/2017 Procedure Pass DF IMG OUTSIDE IMG [address] [place] [address] Social History Tobacco Use Types Packs/Day Years [...] for Head and Neck Oncology, [facility] [place] [address] [facility], [address] [place] [address] Genaro Jarquin MD, DMD [address] [place] [address] [email or web address] documented as of this encounter Visit Diagnoses Not on filedocumented in this encounter Care Teams Nutrition Counselor Relationship Specialty Start Date End Date Carlos Boyd MD [address] [place] [phone] PCP - General Internal Medicine 10/31/17 08/19/24 Andre Reed MD [address] [place] [address] PCP - General Internal Medicine 08/20/24 Self-Referred, Patient Referring Physician 10/31/17 Saji Douglas MD, PhD [address] [place] [phone] [email or web address] [place] Radiation Oncology 11/14/17 03/20/18 Genaro Jarquin MD, DMD [address] [place] [phone] [email or web address] Otolaryngology 03/21/18 documented as of this encounter Additional Source Comments The information contained in this document represents components of the legal health record. It is not the complete legal health record.[facility]
--- OUTSIDE RECORDS SUMMARY | 2024-11-27 17:47 | XMS_ITS | Encounter Summary ---
Author Organization [facility] Address [address] [place] [address] [place] [address] Phone Care Team Providers Care Cryptologic Technician Name Role Phone Carlos Boyd MD Primary Care Provider [phone] Self-Referred, Patient Unavailable Unavailab Saji Jaime MD, PhD Unavailable + [phone] Genaro Jarquin MD, DMD Unavailable [phone] Andre Reed MD Primary Care Provid er Encounter Details Date Type Department Care Team (Late st Contact Info) Description 11/08/2017 Procedure Pass DF IMG OUTSIDE IMG [address] [place] [address] Social History Tobacco Use Types Packs/Day Years [...] for Head and Neck Oncology, [facility] [place] [address] [facility], [address] [place] [address] Genaro Jarquin MD, DMD [address] [place] [address] [email or web address] documented as of this encounter Visit Diagnoses Not on filedocumented in this encounter Care Teams Cryptologic Technician Relationship Specialty Start Date End Date Carlos Boyd MD [address] [place] [phone] PCP - General Internal Medicine 10/31/17 08/19/24 Andre Reed MD [address] [place] [address] PCP - General Internal Medicine 08/20/24 Self-Referred, Patient Referring Physician 10/31/17 Saji Douglas MD, PhD [address] [place] [phone] [email or web address]. [place] Radiation Oncology 11/14/17 03/20/18 Genaro Jarquin MD, DMD [address] [place] [phone] [email or web address] Otolaryngology 03/21/18 documented as of this encounter Additional Source Comments The information contained in this document represents components of the legal health record. It is not the complete legal health record.[facility]
--- OUTSIDE RECORDS SUMMARY | 2024-11-27 17:47 | XMS_ITS | Encounter Summary ---
Author Organization [facility] Address [address] [facility] [address] [place] [address] Phone Care Team Providers Care News Assignment Editor Name Role Phone Carlos Boyd MD Primary Care Provider [phone] Self-Referred, Patient Unavailable Unavailab Saji Jaime MD, PhD Unavailable [phone] Genaro Jarquin MD, DMD Unavailable [phone] Andre Reed MD Primary Care Provid er Encounter Details Date Type Department Care Team (Late Contact Info) Description 12/18/2017 Procedure Pass [facility] Periop [address] [place] [address] Social History Tobacco Use Types Packs/Day Years [...] 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 Not on file Not on file Not on file documented as of this encounter Plan of Treatment Upcoming Encounters Date Type Department Care Team (Late Contact Info) Description 02/25/2025 3:00 PM EST Office Visit [facility], [facility] [place] [facility] [place] [address] [place] [address], [address], [place] [address] Genaro Jarquin MD, DMD [address] [place] [address] [email or web address] documented as of this encounter Visit Diagnoses Not on filedocumented in this encounter Care Teams News Assignment Editor Relationship Specialty Start Date End Date Carlos Boyd MD [address] [place] [address] PCP - General Internal Medicine 10/31/17 08/19/24 Andre Reed MD [address] [place] [address] PCP - General Internal Medicine 08/20/24 Self-Referred, Patient Referring Physician 10/31/17 Saji Douglas MD, PhD [address] [place] [phone] [email or web address] [facility] Radiation Oncology 11/14/17 03/20/18 Genaro Jarquin MD, DMD [address] [place] [phone] [email or web address] 03/21/18 documented as of this encounter Additional Source Comments The information contained in this document represents components of the legal health record. It is not the complete legal health record.[facility]
--- OUTSIDE RECORDS SUMMARY | 2024-11-27 17:47 | XMS_ITS | Encounter Summary ---
Author Organization [facility] Address [address] [place] [address] Phone Care Team Providers Care General Maintenance Technician Name Role Phone Carlos Boyd MD Primary Care Provider [phone] Self-Referred, Patient Unavailable Unavailab Genaro Alfaro MD, DMD Unavailable [phone] Andre Reed MD Primary Care Provid er Encounter Details Date Type Department Care Team (Late st Contact Info) Description 07/13/2020 Procedure Pass [facility] Periop [address] [place] [address] Social History Tobacco Use Types Packs/Day Years Used Date Smoking Tobacco: Every Day Cigarettes 1 20 Smokeless Tobacco: Never Alcohol Use Standard Drinks/Week Comments Yes 0 (1 standard drink = 0.6 oz pur e alcohol) 1 drink per month Sex and Gender Information Value Date Recorded Sex Assigned at Not on file Legal Sex Male 3:43 PM EDT Gender Identity Not on file Sexual Orientation Not on file 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 Wish to be (Past 1 Month) No 021 5:49 AM Maira Leach RN 2. Non-Specific Active Suici ralph Thoughts (Past 1 Month) No 07/14/2020 5:49 AM Natalie Leach RN 6. Suicidal Behavior (Lifetime) No 5:49 AM Maira Leach RN documented as of this encounter Plan of Treatment Upcoming Encounters Date Type Department Care Team (Late st Contact Info) Description 02/25/2025 3:00 PM EST [facility], [facility] [place] [address] [place] [address], 11[address] [place] [address] Genaro Jarquin MD, DMD [address] [place] [address] [email or web address] documented as of this encounter Visit Diagnoses Not on filedocumented in this encounter Care Teams General Maintenance Technician Relationship Specialty Start Date End Date Carlos Boyd MD [address] [place] [address] PCP - General Internal Medicine 10/31/17 08/19/24 Andre Reed MD [address] [place] [address] PCP - General Internal Medicine 08/20/24 Self-Referred, Patient Referring Physician 10/31/17 Genaro Jarquin MD, DMD [email or web address] Otolaryngology 03/21/18 documented as of this encounter Additional Source Comments The information contained in this document represents components of the legal health record. It is not the complete legal health record.[facility]
--- OUTSIDE RECORDS SUMMARY | 2024-11-27 17:47 | XMS_ITS | Encounter Summary ---
Author Organization [facility] Address [address] [place] [address] [place] [address] Phone Care Team Providers Care Minesweeping Officer Name Role Phone Carlos Boyd MD Primary Care Provider [phone] Self-Referred, Patient Unavailable Unavailab Genaro Alfaro MD, DMD Unavailable [phone] Andre Reed MD Primary Care Provid er Encounter Details Date Type Department Care Team (Late st Contact Info) Description 05/24/2020 Prep for Surgery [facility], [facility] [place] [address] [place] [address], 11th [place] [address] Genaro Jarquin MD, DMD [address] [place] [address] [email or web address] Malignant neoplasm of lower gingiva [...] 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 Not on file Not on file Not on file documented as of this encounter Plan of Treatment Upcoming Encounters Date Type Department Care Team (Late st Contact Info) Description 02/25/2025 3:00 PM EST Office [facility], [facility] [place] [address] [place] [address], [address] [place] [address] Genaro Jarquin MD, DMD [address] [place] [address] [email or web address] documented as of this encounter Visit Diagnoses Diagnosis Malignant neoplasm of lower gingiva- Primary documented in this encounter Care Teams Minesweeping Officer Relationship Specialty Start Date End Date Carlos Boyd MD [address] [place] [address] PCP - General Internal Medicine 10/31/17 08/19/24 Andre Reed MD [address] [place] [address] PCP - General Internal Medicine 08/20/24 Self-Referred, Patient Referring Physician 10/31/17 Genaro Jarquin MD, DMD [email or web address] Otolaryngology 03/21/18 documented as of this encounter Additional Source Comments The information contained in this document represents components of the legal health record. It is not the complete legal health record.[facility]
--- OUTSIDE RECORDS SUMMARY | 2024-11-27 17:48 | XMS_ITS | Encounter Summary ---
Author Organization [facility] Address [address] [place] [address] Phone Care Team Providers Care Supervising Editor News Reel Name Role Phone Carlos Boyd MD Primary Care Provider [phone] Self-Referred, Patient Unavailable Unavailab Genaro Alfaro MD, DMD Unavailable [phone] Andre Reed MD Primary Care Provid er Encounter Details Date Type Department Care Team (Late st Contact Info) Description 07/11/2020 Telephone [facility] [address] Radha Montenegro MD [email or web address] Social History Tobacco Use Types Packs/Day Years [...] 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 Wish to be (Past 1 Month) No 021 5:49 AM Maira Leach, CHOCO 2. Non-Specific Active Suici ralph Thoughts (Past 1 Month) No 07/14/2020 5:49 AM Natalie Leach, [place] 6. Suicidal Behavior (Lifetime) No 5:49 AM Maira Leach, [place]OC[place] documented as of this encounter Plan of Treatment Upcoming Encounters Date Type Department Care Team (Late st Contact Info) Description 02/25/2025 3:00 PM EST Office Visit [facility], [facility] [place] [address] [place] [address], 11[address] [place] [address] Genaro Jarquin MD, DMD [address] [place] [address] [email or web address] documented as of this encounter Visit Diagnoses Not on filedocumented in this encounter Care Teams Supervising Editor News Reel Relationship Specialty Start Date End Date Carlos Boyd MD [address] [place] [address] PCP - General Internal Medicine 10/31/17 08/19/24 Andre Reed MD [address] [place] [address] PCP - General Internal Medicine 08/20/24 Self-Referred, Patient Referring Physician 10/31/17 Genaro Jarquin MD, DMD [email or web address] Otolaryngology 03/21/18 documented as of this encounter Additional Source Comments The information contained in this document represents components of the legal health record. It is not the complete legal health record.[facility]
--- OUTSIDE RECORDS SUMMARY | 2024-11-27 17:48 | XMS_ITS | Encounter Summary ---
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 Not on file Not on file documented as of this encounter Plan of Treatment Upcoming Encounters Date Type Department Care Team (Late Contact Info) Description 02/25/2025 3:00 PM EST Office Visit [facility], [facility] [place] [address] [place] [address], 11th [place] [address] Genaro Jarquin MD, DMD [address] [place] [address] [email or web address] documented as of this encounter Visit Diagnoses Not on filedocumented in this encounter Care Teams Accounting Clerk Relationship Specialty Start Date End Date Carlos Boyd MD [address] [place] [address] PCP - General Internal Medicine 10/31/17 08/19/24 Andre Reed MD [address] [place] [address] PCP - General Internal Medicine 08/20/24 Self-Referred, Patient Referring Physician 10/31/17 Genaro Jarquin MD, DMD [email or web address] Otolaryngology 03/21/18 documented as of this encounter Additional Source Comments The information contained in this document represents components of the legal health record. It is not the complete legal health record.[facility]
--- OUTSIDE RECORDS SUMMARY | 2024-11-27 17:48 | XMS_ITS | Patient Health Record ---
Author Organization [facility] Address [address] [place] [phone] Care Team Providers Care Maori Liaison Adviser Name Role Phone Manoj Woodson Neil [phone] Reason For Referral No Information Plan Of Treatment No Information
--- OUTSIDE RECORDS SUMMARY | 2024-11-27 17:48 | XMS_ITS | Encounter Summary ---
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 Not on file Not on file documented as of this encounter Plan of Treatment Upcoming Encounters Date Type Department Care Team (Late Contact Info) Description 02/25/2025 3:00 PM EST Office Visit [facility], [facility] [place] [address] [place] [address], [address]th [place] [address] Genaro Jarquin MD, DMD [address] [place] [address] [email or web address] documented as of this encounter Visit Diagnoses Not on filedocumented in this encounter Care Teams Glove Parts Cutter Relationship Specialty Start Date End Date Carlos Boyd MD [address] [place] [address] PCP - General Internal Medicine 10/31/17 08/19/24 Andre Reed MD [address] [place] [address] PCP - General Internal Medicine 08/20/24 Self-Referred, Patient Referring Physician 10/31/17 Genaro Jarquin MD, DMD [email or web address] Otolaryngology 03/21/18 documented as of this encounter Additional Source Comments The information contained in this document represents components of the legal health record. It is not the complete legal health record.[facility]
--- OUTSIDE RECORDS SUMMARY | 2024-11-27 17:48 | XMS_ITS | Encounter Summary ---
Author Organization [facility] Address [address] [place] [address] Phone Care Team Providers Care Sand Buffer Name Role Phone Carlos Boyd MD Primary Care Provider [phone] Self-Referred, Patient Unavailable Unavailab Genaro Alfaro MD, DMD Unavailable [phone] Andre Reed MD Primary Care Provid er Encounter Details Date Type Department Care Team (Late st Contact Info) Description 06/09/2020 Procedure Pass [facility] [address] [place] [address] Social History Tobacco Use Types Packs/Day Years [...] 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 Not on file Not on file documented as of this encounter Plan of Treatment Upcoming Encounters Date Type Department Care Team (Late Contact Info) Description 02/25/2025 3:00 PM EST Office Visit [facility], [facility] [place] [address] [place] [address], [address] [place] [address] Genaro Jarquin MD, DMD [address] [place] [address] [email or web address] documented as of this encounter Visit Diagnoses Not on filedocumented in this encounter Care Teams Sand Buffer Relationship Specialty Start Date End Date Carlos Boyd MD [address] [place] [address] PCP - General Internal Medicine 10/31/17 08/19/24 Andre Reed MD [address] [place] [address] PCP - General Internal Medicine 08/20/24 Self-Referred, Patient Referring Physician 10/31/17 Genaro Jarquin MD, DMD [email or web address] Otolaryngology 03/21/18 documented as of this encounter Additional Source Comments The information contained in this document represents components of the legal health record. It is not the complete legal health record.[facility]
--- OUTSIDE RECORDS SUMMARY | 2024-11-27 17:48 | XMS_ITS | Encounter Summary ---
Author Organization [facility] Address [address] [place] [address] Phone Care Team Providers Care Television Inspector Name Role Phone Carlos Boyd MD Primary Care Provider [phone] Self-Referred, Patient Unavailable Unavailab Genaro Alfaro MD, DMD Unavailable [phone] Andre Reed MD Primary Care Provid er Encounter Details Date Type Department Care Team (Late st Contact Info) Description 07/31/2020 Procedure Pass [facility], [facility] Scan - [address] [address] Social History Tobacco Use Types Packs/Day Years Used Date Smoking Tobacco: Former Cigarettes 1 20 0 07/13/2000 - 07/13/2020 Smokeless Tobacco: Never Alcohol Use Standard Drinks/Week Comments Not Currently 0 (1 standard drink = 0.6 oz pur e alcohol) Sex and Gender Information Value Date Recorded Sex Assigned at Not on file Legal Sex Male 3:43 PM EDT Gender Identity Not on file Sexual Orientation Not on file 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 Wish to be (Past 1 Month) No 07/31/2020 4:01 PM IKET Maddie Hernadez, RN 2. Non-Specific Active Suici ralph Thoughts (Past 1 Month) No 07/31/2020 4:01 PM IKET Anh Hernadez, RN 6. Suicidal Behavior (Lifetime) No 4:01 PM IKET Maddie Hernadez RN documented as of this encounter Plan of Treatment Upcoming Encounters Date Type Department Care Team (Late st Contact Info) Description 02/25/2025 3:00 PM EST Office [facility], [facility] [place] [address] [place] [address], [address] [place] [address] Genaro Jarquin MD, DMD [address] [place] [address] [email or web address] documented as of this encounter Visit Diagnoses Not on filedocumented in this encounter Care Teams Television Inspector Relationship Specialty Start Date End Date Carlos Boyd MD [address] [place] [address] PCP - General Internal Medicine 10/31/17 08/19/24 Andre Reed MD [address] [place] [address] PCP - General Internal Medicine 08/20/24 Self-Referred, Patient Referring Physician 10/31/17 Genaro Jarquin MD, DMD [email or web address] Otolaryngology 03/21/18 documented as of this encounter Additional Source Comments The information contained in this document represents components of the legal health record. It is not the complete legal health record.[facility]
--- OUTSIDE RECORDS SUMMARY | 2024-11-27 17:48 | XMS_ITS | Encounter Summary ---
Author Organization [facility] Address [address] [place] [address] Phone Care Team Providers Care Paper Grader Name Role Phone Carlos Boyd MD Primary Care Provider [phone] Self-Referred, Patient Unavailable Unavailab Genaro Alfaro MD, DMD Unavailable [phone] Andre Reed MD Primary Care Provid er Encounter Details Date Type Department Care Team (Late st Contact Info) Description 07/11/2020 Telephone [facility] [address] Radha Montenegro MD [email or web address] Social History Tobacco Use Types Packs/Day [...] 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 Not on file Not on file documented as of this encounter Functional Status * Calculated C-SSRS Risk Score (Lifetime/Recent) Answer Date of Assessment Author No Risk Indicated 07/14/2020 5:49 AM EDT Maira Owen RN * [place] Suicide Severity Rating Scale (Screener/Recent Self-Report) Question [...] Visit [facility], [facility] [place] [address] [place] [address], [address] [place] [address] Genaro Jarquin MD, DMD [address] [place] [address] [email or web address] documented as of this encounter Visit Diagnoses Not on filedocumented in this encounter Care Teams Paper Grader Relationship Specialty Start Date End Date Carlos Boyd MD [address] [place] [address] PCP - General Internal Medicine 10/31/17 08/19/24 Andre Reed MD [address] [place] [address] PCP - General Internal Medicine 08/20/24 Self-Referred, Patient Referring Physician 10/31/17 Genaro Jarquin MD, DMD [email or web address] Otolaryngology 03/21/18 documented as of this encounter Additional Source Comments The information contained in this document represents components of the legal health record. It is not the complete legal health record.[facility]
--- OUTSIDE RECORDS SUMMARY | 2024-11-27 17:48 | XMS_ITS | Encounter Summary ---
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 Procedures CTA 3D Reconstruction Lower Extremity Runoff Regan Joseph CNP Phone: tel: fax: mailto:[email or web address] Referral ID Status Reason Start Date Expiration Date Visits Re quested Visits Authorized [id number] Closed 06/16/2020 06/16/2021 1 1 Encounter Details Date Type Department Care Team (Late st Contact Info) Description 06/16/2020 Ancillary Orders [facility], [facility] [address] [place] [address], [address] [place] [address] Regan Joseph CNP [address] [place] [address] [email or web address] Malignant neoplasm of lower gingiva; Verrucous carcinoma Social History Tobacco Use Types Packs/Day Years [...] 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 Not on file Not on file documented as of this encounter Plan of Treatment Upcoming Encounters Date Type Department Care Team (Late st Contact Info) Description 02/25/2025 3:00 PM EST Office Visit [facility], [facility] [address] [place] [address], [address] [place] [address] Genaro Jarquin MD, [place] [address] [email or web address] documented as of this encounter Results * CTA 3D Reconstruction Lower Extremity Runoff (06/16/2020 3:54 PM EDT) Anatomical Region Laterality Modality Abdomen, Hip Left, Hip Right , Hip Bilateral, Thigh Left, Thigh Right, Knee Left, Knee Right, Knee Bilateral, Leg Left, Leg Right, Leg Bilateral, Ankle Left, Ankle Right, Ankle Bilateral, Foot Left, Foot Right, Foot Bilateral Computed Tomography 06/17/2020 8:28 AM EDT Impressions 06/17/2020 2:56 PM EDT 1. Aortoiliac: No aortic aneurysm, dissection or rupture. Moderate atherosclerotic disease throughout the infrarenal abdominal aorta. 2. Right lower extremity: 3-vessel runoff. 3. Left lower extremity: 3-vessel runoff. ATTESTATION: Sammy Cosme, as teaching physician have reviewed the images, if any, for this patient's exam, and if necessary, have edited the report originally created by Everardo Olsen. Narrative 06/17/2020 2:56 PM EDT Reason for exam (per EHR order): * Claudication or leg ischemia; 64 y.o. 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 IVCM: Administered 3D Post-processing: MIPS COMPARISON: Non-contrast CT Chest (12/27/2016; outside hospital). FINDINGS: VASCULAR: Aorta: Moderate atherosclerotic disease with multifocal ulcerated plaques in the infrarenal aorta and bilateral common & internal iliac arteries. . Celiac axis: Mild stenosis likely due to median arcuate ligament compression. Superior mesenteric artery: Patent. Right renal artery: Patent. Left renal artery: Patent. The main vessel shows early branching. Patent accessory left renal artery. Inferior mesenteric artery: Patent. Right common iliac artery: patent. Diffuse atherosclerotic plaques along the vessel. Right internal iliac artery: moderate stenosis Right external iliac artery: patent Right common femoral artery: patent Right superficial femoral artery: mild stenosis. Mild atherosclerotic plaques along the vessel. Right profunda femoris artery: patent Right kdehj-irr-zuxm popliteal artery: mild stenosis. Mild atherosclerotic plaques along the vessel. Right hepsm-coz-gjip popliteal artery: mild stenosis. Mild atherosclerotic plaques along the vessel. Right anterior tibial artery: patent Right tibioperoneal artery: patent Right peroneal artery: patent Right posterior tibial artery: patent Right dorsalis artery: patent Right plantar arteries and plantar arch: patent Left common iliac artery: patent. Diffuse atherosclerotic plaques along the vessel. Left internal iliac artery: patent Left external iliac artery: patent Left common femoral artery: mild stenosis Left superficial femoral artery: mild stenosis. Mild atherosclerotic plaques along the vessel. Left profunda femoris artery: patent Left vclhz-tqw-qetq popliteal artery: mild stenosis. Mild atherosclerotic plaques along the vessel. Left ydzcs-bjr-svps popliteal artery: mild stenosis. Mild atherosclerotic plaques along the vessel. Left anterior tibial artery: patent Left tibioperoneal artery: patent Left peroneal artery: patent Left posterior tibial artery: patent Left dorsalis artery: patent Left plantar arteries and plantar arch: patent Lower Chest: Normal. Liver: 6mm calcific focus along the hepatic dome. Biliary System: Normal. Pancreas: Normal. Spleen: Normal. Adrenal Glands: Normal. Kidneys: Normal. Bowel: Small hiatal hernia. Colonic diverticulosis with no diverticulitis. No wall thickening or dilatation. Mesentery, Omentum, and Peritoneum: Normal. Pelvic Organs: Prostatomegaly with a nodule indenting the base of the urinary bladder. Lymph Nodes: Normal. Bones and Soft Tissues: Degenerative changes in the visualized spine. No destructive osseous lesions. Procedure Note Sammy Washburn MD - 06/17/2020 Reason for exam (per EHR order): * Claudication or leg ischemia; 64 y.o.gentleman with atypical verrucous hyperplasia of the left anteriormandibular gingiva/Please assess three vessel run off and patency TECHNIQUE: CTA Abdomen, Pelvis and Bilateral Lower Extremity Runoff Scans: Noncontrast; Angiogram; Delay(immediate)-Bilateral Lower Extremityfrom knee down Oral contrast: None. IVCM: Administered 3D Post-processing: MIPS COMPARISON: Non-contrast CT Chest (12/27/2016; outside hospital). FINDINGS: VASCULAR: Aorta: Moderate atherosclerotic disease with multifocal ulcerated plaquesin the infrarenal aorta and bilateral common & internal iliac arteries.. Celiac axis: Mild stenosis likely due to median arcuate ligamentcompression. Superior mesenteric artery: Patent. Right renal artery: Patent. Left renal artery: Patent. The main vessel shows early branching. Patentaccessory left renal artery. Inferior mesenteric artery: Patent. Right common iliac artery: patent. Diffuse atherosclerotic plaques alongthe vessel. Right internal iliac artery: moderate stenosis Right external iliac artery: patent Right common femoral artery: patent Right superficial femoral artery: mild stenosis. Mild atheroscleroticplaques along the vessel. Right profunda femoris artery: patent Right bcisf-jft-bqeh popliteal artery: mild stenosis. Mild atheroscleroticplaques along the vessel. Right jtbcx-sbc-qzxj popliteal artery: mild stenosis. Mild atheroscleroticplaques along the vessel. Right anterior tibial artery: patent Right tibioperoneal artery: patent Right peroneal artery: patent Right posterior tibial artery: patent Right dorsalis artery: patent Right plantar arteries and plantar arch: patent Left common iliac artery: patent. Diffuse atherosclerotic plaques alongthe vessel. Left internal iliac artery: patent Left external iliac artery: patent Left common femoral artery: mild stenosis Left superficial femoral artery: mild stenosis. Mild atheroscleroticplaques along the vessel. Left profunda femoris artery: patent Left zweyt-euw-zmcx popliteal artery: mild stenosis. Mild atheroscleroticplaques along the vessel. Left drzkl-fbp-oijw popliteal artery: mild stenosis. Mild atheroscleroticplaques along the vessel. Left anterior tibial artery: patent Left tibioperoneal artery: patent Left peroneal artery: patent Left posterior tibial artery: patent Left dorsalis artery: patent Left plantar arteries and plantar arch: patent Lower Chest: Normal. Liver: 6mm calcific focus along the hepatic dome. Biliary System: Normal. Pancreas: Normal. Spleen: Normal. Adrenal Glands: Normal. Kidneys: Normal. Bowel: Small hiatal hernia. Colonic diverticulosis with no diverticulitis.No wall thickening or dilatation. Mesentery, Omentum, and Peritoneum: Normal. Pelvic Organs: Prostatomegaly with a nodule indenting the base of theurinary bladder. Lymph Nodes: Normal. Bones and Soft Tissues: Degenerative changes in the visualized spine. Nodestructive osseous lesions. IMPRESSION: 1. Aortoiliac: No aortic aneurysm, dissection or rupture. Moderateatherosclerotic disease throughout the infrarenal abdominal aorta. 2. Right lower extremity: 3-vessel runoff. 3. Left lower extremity: 3-vessel runoff. ATTESTATION: Sammy Cosme, as teaching physician have reviewed theimages, if any, for this patient's exam, and if necessary, have edited thereport originally created by Everardo Olsen. 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 Other malignant neoplasm of unspecified site documented in this encounter Care Teams Chuck Tender Relationship Specialty Start Date End Date Carlos Boyd MD [address] [place] [address] PCP - General Internal Medicine 10/31/17 08/19/24 Andre Reed MD [address] [place] [address] PCP - General Internal Medicine 08/20/24 Self-Referred, Patient Referring Physician 10/31/17 Genaro Jarquin MD, DMD [email or web address] Otolaryngology 03/21/18 documented as of this encounter Additional Source Comments The information contained in this document represents components of the legal health record. It is not the complete legal health record.[facility]
--- OUTSIDE RECORDS SUMMARY | 2024-11-27 17:48 | XMS_ITS | Clinical Summary ---
Author Organization [facility] Address [address] [place] [address] Phone Care Team Providers Care Sheet Metal Smith Name Role Phone Self-Referred, Patient Unavailable Unavailab Genaro Alfaro MD, DMD Unavailable [phone] Andre Reed MD Primary Care Provid er Allergies Active Allergy Reactions Criticality Noted Date Comments Iodinated Contrast Media 10/05/2023 Pt had an arm rash with CT contrast. Shellfish Containing Products 11/08/2017 Gets pretreated for scans but never had a reaction to CT contrast Medications ANDROGEL 20.25 mg/1.25 gram (1.62 %) transdermal gel pump APPLY 3 PUMPS TO DIRECTED AREA DAILY 3 8 Active albuterol 90 mcg/actuation inhaler Inhale 2 puffs into the lungs every 6 (six) hours as needed for wheezing. Active atorvastatin (LIPITOR) 10 MG tablet Take 10 mg by mouth daily. 1 Active tamsulosin (FLOMAX) 0.4 mg Cap Take 0.8 mg by mouth daily. 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 Diabetes mellitus Overview (12/11/2017): Type II, on oral agents. Asthma Overview (12/11/2017): Managed with inhalers PRN. Family History Medical History Relation Comments Cancer Father Stroke Mother Anesthesia problems Neg Hx Relation Status Comments Father Mother Social History Tobacco Use Types Packs/Day Years Used Date Smoking Tobacco: Former Cigarettes 1 20 0 07/13/2000 - 07/13/2020 Smokeless Tobacco: Never Tobacco Cessation:Ready to Q uit: Yes; Counseling Given: Yes Alcohol Use Standard Drinks/Week Comments Not Currently 0 (1 standard drink = 0.6 oz pur e alcohol) Education Answer Date Recorded Are you interested in more education? Not on rogerio e 06/01/2022 Are you concerned about learning? Not on file 06/01/2022 No 06/01/2022 No 06/01/2022 Digital Access Answer Date Recorded No 07/04/2022 No 07/04/2022 No 07/04/2022 Reliable internet access at home? Not on file 07/04/2022 Device with a working camera? 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 Not on file Not on file Not on file Last Filed Vital Signs Vital Sign Reading Time Taken Comments Blood Pressure 150/87 08/20/2024 3:52 PM EDT Pulse 83 08/20/2024 3:52 PM EDT Temperature 36.1 C (97 F) 08/20/2024 3:50 PM EDT Respiratory Rate 18 08/20/2024 3:50 PM EDT Oxygen Saturation 95% 08/20/2024 3:52 PM EDT Inhaled Oxygen Concentration 40% 12:00 PM EDT Weight 74.7 kg (164 lb 10.9 oz) 08/20/2024 3:50 PM EDT Height 172.8 cm (5' 8.03 ) 08/20/2024 3:50 PM ED T Body Mass Index 25.02 08/20/2024 3:50 PM EDT Plan of Treatment Upcoming Encounters Date Type Department Care Team (Late st Contact Info) Description 02/25/2025 3:00 PM EST Office Visit [facility], [facility] [address] [place] [address], 11[address] [place] [address] Genaro Jarquin MD, DMD [address] [place] [address] [email or web address] Health Maintenance Due Date Last Done Comments Adult Td,Tdap Booster 1953 DEPRESSION SCREENING 1965 SMOKING Hx and SMOKELESS TOBACCO SCREENING 1966 HEPATITIS C SCREENING 10/29/1971 PNEUMOCOCCAL VACCINES (50+ years) (1 of 2 - PCV) 1972 ZOSTER VACCINES (1 of 2) 1972 COLOGUARD 1998 COLONOSCOPY 1998 COLORECTAL CANCER SCREENING 1998 FIT TEST 1998 FOBT 1998 SIGMOIDOSCOPY 1998 VIRTUAL COLONOSCOPY 1998 RSV VACCINE (1 - Risk 50-74 years 1-dose series) 10/29/2003 DIABETIC EYE EXAM 12/11/2017 URINE MICROALBUMIN/CREATININ E RATIO 12/11/2017 HEMOGLOBIN A1C 01/06/2021 07/07/2020, 12/11/2017 INFLUENZA VACCINE (#1) 2024 COVID-19 VACCINE (1 - 2024-2 6 season) 2024 BLOOD PRESSURE 02/20/2025 08/20/2024 ABDOMINAL AORTIC ANEURYSM (AAA) SCREENING Completed 06/16/2020 HEPATITIS A VACCINES Aged Out No long er eligible based on patient's age to complete this topic HIB VACCINES Aged Out No longer eligi ble based on patient's age to complete this topic MENINGOCOCCAL VACCINES (ACWY) Aged Out No longer eligible based on patient's age to complete this topic MENINGOCOCCAL VACCINES (B) Aged Out N o longer eligible based on patient's age to complete this topic Medical Devices Implanted Type Area Electrical Engineering Designer Device Identifier Shelf Expiration Date Model / Serial / Lot Screw Bone 2.0x15.0mm Matrixmandible Titanium Locking Self Tapping Pk/5ea - [id number] Implanted:Qty: 2 on 07/13/2020 by Genaro Jarquin MD, DMD at [facility] Right: Mandible SYNTHES .503.6 14.05 / / Screw Bone 2.0x10.0mm Matrixmandible Titanium Locking Self Tapping Pk/5ea - [id number] Implanted:Qty: 6 on 07/13/2020 by Genaro Jarquin MD, DMD at [facility] N/A: Mandible SYNTHES 503.6 10.05 / / Screw Bone 2.0x12.0mm Matrixmandible Titanium Locking Self Tapping Pk/5ea - [id number] Implanted:Qty: 1 on 07/13/2020 by Genaro Jarquin MD, DMD at [facility] N/A: Mandible SYNTHES 503.6 12.05 / / Signs And Displays Sales Representative Anastomosis 4.0mm Vesselxorthopedic Microvascular Polyethylene S/S Bx/6ea - [id number] Implanted:Qty: 1 on 07/13/2020 by Genaro Jarquin MD, DMD at [facility] STANDARD N/A: Mandible [employer] 09/18/2024 [id number] / / [id number] Signs And Displays Sales Representative Anastomosis 3mm Vesselxorthopedic Microvascular Polyethylene S/S Bx/6ea - [id number] Implanted:Qty: 1 on 07/13/2020 by Gisel Castro MD at [facility] STANDARD [employer]S MANGO BCN 04/01/2025 [id number] / / [id number] Description:Transferred with correct ps# Free Style Melanie Glucose Monitor Plate 7x2.0mm 23 Hole Cranial Matrixmandible Titanium Angle Reconstruction Left - [id number] Implanted:Qty: 1 on 07/13/2020 by Genaro Jarquin MD, DMD at [facility] N/A: Mandible SYNTHES 503.7 32 / / Procedures Procedure Name Priority Date/Time Associated Diagnosis Comments HEMOGLOBIN A1C Routine 07/07/2020 1:51 PM EDT Preoperative clearance CT ANGIO ABDOMINAL AORTA AND BILATERAL LOWER EXTREMITY RUNOFF WITH AND WITHOUT CONTRAST Routine 06/16/2020 3:54 PM EDT 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 from Last 3 Months or Most Recently Relevant to Health Maintenance Results * (ABNORMAL) Hemoglobin A1c (07/07/2020 1:51 PM EDT) HEMOGLOBIN A1C 8.0(H) 4.3 - 5.8 % [facility] Blood 07/07/2020 1:51 PM EDT 07/07/2020 1:56 PM EDT us Gisel Castro MD LAB BLOOD ORDERABLES Final R esult [address] [address] * CT ANGIO ABDOMINAL AORTA AND BILATERAL LOWER EXTREMITY RUNOFF WITH AND WITHOUT CONTRAST (:54 PM EDT) Anatomical Region Laterality Modality Abdominal Vasculature, Foot Right, Foot Left, Ankle Right, Ankle Left, Leg Right, Leg Left, Knee Bilateral, Knee Right, Knee Left, Thigh Right, Thigh Left, Hip Bilateral, Hip Right, Hip Left Computed Humberto graphy 06/17/2020 8:28 AM EDT Impressions 06/17/2020 2:56 [...] vessel. Right profunda femoris artery: patent Right lercd-yif-ekcn popliteal artery: mild stenosis. Mild atherosclerotic plaques along the vessel. Right gcicr-wmm-mbon popliteal artery: mild stenosis. Mild atherosclerotic plaques [...] vessel. Left profunda femoris artery: patent Left ficln-ngp-wwia popliteal artery: mild stenosis. Mild atherosclerotic plaques along the vessel. Left hurkd-xoc-kthy popliteal artery: mild stenosis. Mild atherosclerotic plaques [...] vessel. Right profunda femoris artery: patent Right jryhl-may-vlqg popliteal artery: mild stenosis. Mild atheroscleroticplaques along the vessel. Right dqwys-gda-vxeo popliteal artery: mild stenosis. Mild atheroscleroticplaques along [...] vessel. Left profunda femoris artery: patent Left wyruw-udr-jwcd popliteal artery: mild stenosis. Mild atheroscleroticplaques along the vessel. Left pyliv-bzo-nmsa popliteal artery: mild stenosis. Mild atheroscleroticplaques along [...] 3. Left lower extremity: 3-vessel runoff. ATTESTATION: Samym Cosme, as teaching physician have reviewed theimages, if any, for this patient's exam, and if necessary, have edited thereport originally created by Everardo Olsen. Genaro Jarquin MD, DMD IMG CT ABD/PELVIS Final Result from Last 3 Months or Most Recently Relevant to Health Maintenance Insurance Advance Directives For more information, please contact: [phone] (9AM - 5PM [facility], Sunday-Sunday) Documents on File Type Date Recorded Patient Manager Client Service Expl anation Healthcare Proxy 01/04/2018 10:28 AM sign ed on 12/18/2017 * Full Code (Latest Code Status on File) Date Activated Date Inactivated Comments 07/15/2020 2:31 PM Question Answer Comments Code Status Confirmed With: Patient Code Status Communicated To: Inpatient Attending Care Teams Sheet Metal Smith Relationship Specialty Start Date End Date Andre Reed MD [address] [place] [address] PCP - General Internal Medicine 08/20/24 Self-Referred, Patient Referring Physician 10/31/17 Genaro Jarquin MD, DMD [email or web address] Otolaryngology 03/21/18 Additional Source Comments The information contained in this document represents components of the legal health record. It is not the complete legal health record.[facility]
== END 2024-11-27 14:44 | disposition home or self-care (01) ==
PROVIDERS: PCP Physician Assistant Medical; Visit Provider Physician Assistant Medical
DX: E11.9 Type 2 diabetes mellitus without complications (principal); I10 Essential (primary) hypertension; Z23 Encounter for immunization; Z13.9 Encounter for screening, unspecified

== ENCOUNTER → 2024-11-27 13:55 | Outpatient (BNVA) | payer BC, SELFPAY | PROVIDERS: PCP Internal Medicine; Visit Provider Physician Assistant Medical | DX: I10 Essential (primary) hypertension (principal); E11.9 Type 2 diabetes mellitus without complications; Z23 Encounter for immunization | CPT/HCPCS: 83036; 90471; 90656; 96127 ==

== ENCOUNTER 2025-02-02 14:18 | Outpatient (REF) | payer BC, SELFPAY ==
[2025-02-02 15:46] LABS: Hematocrit 40.4 % (42.0-52.0)
[2025-02-02 16:32] LABS: Prostate Specific Antigen 4.76 ng/mL (<0.05-4.0)
--- OUTSIDE RECORDS SUMMARY | 2025-02-02 16:42 | XMS_ITS | Encounter Summary ---
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 Procedures CTA 3D Reconstruction Lower Extremity Runoff Regan Joseph CNP Phone: tel: fax: mailto:[email or web address] Referral ID Status Reason Start Date Expiration Date Visits Re quested Visits Authorized [id number] Closed 06/16/2020 06/16/2021 1 1 Encounter Details Date Type Department Care Team (Late st Contact Info) Description 06/16/2020 Ancillary Orders [facility], [facility] [place] [address] [place] [address], [address] [place] [address] Regan Joseph CNP [address] [place] [address] [email or web address] Malignant neoplasm of lower gingiva; Verrucous carcinoma [...] 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 Right profunda femoris artery: patent Right evoit-rii-hdzp popliteal artery: mild stenosis. Mild atherosclerotic plaques along the vessel. Right gjqjp-lqt-gpxe popliteal artery: mild stenosis. Mild atherosclerotic plaques [...] vessel. Left profunda femoris artery: patent Left lcqjk-jmk-kjxg popliteal artery: mild stenosis. Mild atherosclerotic plaques along the vessel. Left gqujk-qzl-xsvd popliteal artery: mild stenosis. Mild atherosclerotic plaques [...] vessel. Right profunda femoris artery: patent Right yvahh-wlc-guwb popliteal artery: mild stenosis. Mild atheroscleroticplaques along the vessel. Right bvozn-tsz-ghwj popliteal artery: mild stenosis. Mild atheroscleroticplaques along [...] vessel. Left profunda femoris artery: patent Left kpran-ovd-njat popliteal artery: mild stenosis. Mild atheroscleroticplaques along the vessel. Left kazlp-bsh-awkt popliteal artery: mild stenosis. Mild atheroscleroticplaques along [...] site documented in this encounter Care Teams Water Taxi Operator Relationship Specialty Start Date End Date Carlos Boyd MD [address] [place] [address] PCP - General Internal Medicine 10/31/17 08/19/24 Andre Reed MD [address] [place] [address] PCP - General Internal Medicine 08/20/24 Self-Referred, Patient Referring Physician 10/31/17 Genaro Jarquin MD, DMD [email or web address] at [email or web address] Otolaryngology 03/21/18 documented as of this encounter Additional Source Comments The information contained in this document represents components of the legal health record. It is not the complete legal health record.[facility]
--- OUTSIDE RECORDS SUMMARY | 2025-02-02 16:42 | XMS_ITS | Encounter Summary ---
Author Organization [facility] Address [address] [facility] [address] [place] [address] Phone Care Team Providers Care Bridal Service Sales And Management Name Role Phone Carlos Boyd MD Primary Care Provider [phone]- [phone] Self-Referred, Patient Unavailable Unavailab Genaro Alfaro MD, DMD Unavailable [phone] Andre Reed MD Primary Care Provid er Encounter Details Date Type Department Care Team (Late st Contact Info) Description 07/31/2020 Procedure Pass [facility], Ct Scan - [address] [address] Social History Tobacco Use Types Packs/Day Years [...] 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 documented as of this encounter Visit Diagnoses Not on filedocumented in this encounter Care Teams Bridal Service Sales And Management Relationship Specialty Start Date End Date Carlos Boyd MD [address] [place] [address] PCP - General Internal Medicine 10/31/17 08/19/24 Andre Reed MD [address] [place] [address] PCP - General Internal Medicine 08/20/24 Self-Referred, Patient Referring Physician 10/31/17 Genaro Jarquin MD, DMD [email or web address] Otolaryngology 03/21/18 documented as of this encounter Additional Source Comments The information contained in this document represents components of the legal health record. It is not the complete legal health record.[facility]
--- OUTSIDE RECORDS SUMMARY | 2025-02-02 16:42 | XMS_ITS | Encounter Summary ---
Author Organization [facility] Address [address] [place] [address] Phone Care Team Providers Care Cordage Sales Representative Name Role Phone Carlos Boyd MD Primary Care Provider [phone] Self-Referred, Patient Unavailable Unavailab Genaro Alfaro MD, DMD Unavailable [phone] Andre Reed MD Primary Care Provid er Encounter Details Date Type Department Care Team (Late Contact Info) Description 07/11/2020 Telephone [facility] [address] Radha Montenegro MD [email or web address] Social History Tobacco Use Types Packs/Day Years [...] 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 Not on file Not on file documented as of this encounter Plan of Treatment Upcoming Encounters Date Type Department Care Team (Late Contact Info) Description 02/25/2025 3:00 PM EST Office Visit [facility], [facility] [place] [address] [place] [address], 11th [place] [address] Genaro Jarquin MD, DMD 45 [place] [address] [email or web address] documented as of this encounter Visit Diagnoses Not on filedocumented in this encounter Care Teams Cordage Sales Representative Relationship Specialty Start Date End Date Carlos Boyd MD [address] [place] [address] PCP - General Internal Medicine 10/31/17 08/19/24 Andre Reed MD [address] [place] [address] PCP - General Internal Medicine 08/20/24 Self-Referred, Patient Referring Physician 10/31/17 Genaro Jarquin MD, DMD [email or web address] 03/21/18 documented as of this encounter Additional Source Comments The information contained in this document represents components of the legal health record. It is not the complete legal health record.[facility]
--- OUTSIDE RECORDS SUMMARY | 2025-02-02 16:42 | XMS_ITS | Encounter Summary ---
Author Organization [facility] Address [address] [place] [address] [place] [address] Phone Care Team Providers Care Burner Hand Name Role Phone Carlos Boyd MD Primary Care Provider [phone]- [phone] Self-Referred, Patient Unavailable Unavailab Saji Jaime MD, PhD Unavailable [phone] Genaro Jarquin MD, DMD Unavailable [phone] Andre Reed MD Primary Care Provid er Encounter Details Date Type Department Care Team (Late st Contact Info) Description 11/08/2017 Procedure Pass [facility] OUTSIDE IMG [address] [place] [address] Social History Tobacco Use Types Packs/Day Years [...] Visit [facility], [facility] [facility] [place] [address] [facility], 11th [place] [address] Genaro Jarquin MD, DMD 45 [place] [address] [email or web address] documented as of this encounter Visit Diagnoses Not on filedocumented in this encounter Care Teams Burner Hand Relationship Specialty Start Date End Date Carlos Boyd MD [address] [place] [address] PCP - General Internal Medicine 10/31/17 08/19/24 Andre Reed MD [address] [place] [address] PCP - General Internal Medicine 08/20/24 Self-Referred, Patient Referring Physician 10/31/17 Saji Douglas MD, PhD [address] [place] [address] [email or web address] [facility] Radiation Oncology 11/14/17 03/20/18 Genaro Jarquin MD, DMD [address] [place] [address] [email or web address] [email or web address] 03/21/18 documented as of this encounter Additional Source Comments The information contained in this document represents components of the legal health record. It is not the complete legal health record.[facility]
--- OUTSIDE RECORDS SUMMARY | 2025-02-02 16:42 | XMS_ITS | Encounter Summary ---
Author Organization [facility] Address [address] [place] [address] [place] [address] Phone Care Team Providers Care Chemical Preparer Name Role Phone Carlos Boyd MD Primary Care Provider [phone] Self-Referred, Patient Unavailable Unavailab Saji Jaime MD, PhD Unavailable + [phone] Genaro Jarquin MD, DMD Unavailable [phone] Andre Reed MD Primary Care Provid er Encounter Details Date Type Department Care Team (Late st Contact Info) Description 11/08/2017 Procedure Pass [facility] OUTSIDE IMG 450 [place] [address] Social History Tobacco Use Types Packs/Day Years [...] Visit [facility], [facility] [facility] [place] [address] [facility], 11th [place] [address] Genaro Jarquin MD, DMD 45 [place] [address] [email or web address] documented as of this encounter Visit Diagnoses Not on filedocumented in this encounter Care Teams Chemical Preparer Relationship Specialty Start Date End Date Carlos Boyd MD [address] [place] [address] PCP - General Internal Medicine 10/31/17 08/19/24 Andre Reed MD [address] [place] [address] PCP - General Internal Medicine 08/20/24 Self-Referred, Patient Referring Physician 10/31/17 Saji Douglas MD, PhD [address] [place] [address] [email or web address] [facility] Radiation Oncology 11/14/17 03/20/18 Genaro Jarquin MD, DMD [address] [place] [address] [email or web address] 03/21/18 documented as of this encounter Additional Source Comments The information contained in this document represents components of the legal health record. It is not the complete legal health record.[facility]
--- OUTSIDE RECORDS SUMMARY | 2025-02-02 16:42 | XMS_ITS | Encounter Summary ---
Author Organization 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 Not on file Not on file documented as of this encounter Plan of Treatment Upcoming Encounters Date Type Department Care Team (Late Contact Info) Description 02/25/2025 3:00 PM EST Office Visit [facility], [facility] [place] [address] [place] [address], 11th [place] [address] Genaro Jarquin MD, DMD 45 [place] [address] [email or web address] documented as of this encounter Visit Diagnoses Not on filedocumented in this encounter Care Teams Photographic Platemaker Relationship Specialty Start Date End Date Carlos Boyd MD [address] [place] [address] PCP - General Internal Medicine 10/31/17 08/19/24 Andre Reed MD [address] [place] [address] PCP - General Internal Medicine 08/20/24 Self-Referred, Patient Referring Physician 10/31/17 Genaro Jarquin MD, DMD [email or web address] Otolaryngology 03/21/18 documented as of this encounter Additional Source Comments The information contained in this document represents components of the legal health record. It is not the complete legal health record.[facility]
--- OUTSIDE RECORDS SUMMARY | 2025-02-02 16:42 | XMS_ITS | Encounter Summary ---
Author Organization [facility] Address [address] [facility] [address] [place] [address] Phone Care Team Providers Care Product Development Scientist Name Role Phone Carlos Boyd MD Primary Care Provider [phone] Self-Referred, Patient Unavailable Unavailab Saji Jaime MD, PhD Unavailable [phone] Genaro Jarquin MD, DMD Unavailable [phone] Andre Reed MD Primary Care Provid er Encounter Details Date Type Department Care Team (Late Contact Info) Description 12/18/2017 Procedure Pass [facility] Periop [address] [place] [address] Social History Tobacco Use Types Packs/Day Years [...] 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 Not on file Not on file documented as of this encounter Plan of Treatment Upcoming Encounters Date Type Department Care Team (Late Contact Info) Description 02/25/2025 3:00 PM EST Office Visit [facility], [facility] [place] [address] [place] [address], [address], [place] [address] Genaro Jarquin MD, DMD 45 [place] [address] [email or web address] documented as of this encounter Visit Diagnoses Not on filedocumented in this encounter Care Teams Product Development Scientist Relationship Specialty Start Date End Date Carlos Boyd MD [address] [place] [address] PCP - General Internal Medicine 10/31/17 08/19/24 Andre Reed MD [address] [place] [address] PCP - General Internal Medicine 08/20/24 Self-Referred, Patient Referring Physician 10/31/17 Saji Douglas MD, PhD [address] [place] [address] [email or web address]. [facility] Radiation Oncology 11/14/17 03/20/18 Genaro Jarquin MD, DMD [address] [place] [address] [email or web address] 03/21/18 documented as of this encounter Additional Source Comments The information contained in this document represents components of the legal health record. It is not the complete legal health record.[facility]
--- OUTSIDE RECORDS SUMMARY | 2025-02-02 16:42 | XMS_ITS | Clinical Summary ---
Author Organization 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 Not on [...] Visit [facility], [facility] [facility] [place] [address] [place] [address], 11th [place] [address] Genaro Jarquin MD, DMD 45 [place] [address] [email or web address] Health Maintenance Due Date Last Done Comments [...] this topic Medical Devices Implanted Type Area Boot And Shoe Laborer Device Identifier Shelf Expiration Date Model / Serial / Lot Screw Bone 2.0x15.0mm Matrixmandible Titanium Locking Self Tapping Pk/5ea - [id number] Implanted:Qty: 2 on 07/13/2020 by Genaro Jarquin MD, DMD at [facility] Right: Mandible SYNTHES .503.6 14.05 / / Screw Bone 2.0x10.0mm Matrixmandible Titanium Locking Self Tapping Pk/5ea - [id number] Implanted:Qty: 6 on 07/13/2020 by Genaro Jarquin MD, DMD at [facility] N/A: Mandible SYNTHES 503.6 10.05 / / Screw Bone 2.0x12.0mm Matrixmandible Titanium Locking Self Tapping Pk/5ea - [id number] Implanted:Qty: 1 on 07/13/2020 by Genaro Jarquin MD, DMD at [facility] N/A: Mandible SYNTHES 503.6 12.05 / / Toy Stuffer Anastomosis 4.0mm Vesselxorthopedic Microvascular Polyethylene S/S Bx/6ea - [id number] Implanted:Qty: 1 on 07/13/2020 by Genaro Jarquin MD, DMD at [facility] STANDARD N/A: Mandible Trefis 09/18/2024 [id number] / / [id number] Toy Stuffer Anastomosis 3mm Vesselxorthopedic Microvascular Polyethylene S/S Bx/6ea - [id number] Implanted:Qty: 1 on 07/13/2020 by Gisel Castro MD at [facility] STANDARD Ui LinkS [employer]enta 04/01/2025 [id number] / / [id number] Description:Transferred with correct ps# Free Style Melanie Glucose Monitor Plate 7x2.0mm 23 Hole Cranial Matrixmandible Titanium Angle Reconstruction Left - [id number] Implanted:Qty: 1 on 07/13/2020 by Genaro Jarquin MD, DMD at [facility] N/A: Mandible SYNTHES 503.7 32 / / [...] HEMOGLOBIN A1C 8.0(H) 4.3 - 5.8 % [facility] Blood 07/07/2020 1:51 PM EDT 07/07/2020 1:56 PM EDT us Gisel Castro MD LAB BLOOD BKR ORDERABLES Fin al Result [address] [address] * CT ANGIO ABDOMINAL AORTA AND BILATERAL [...] vessel. Right profunda femoris artery: patent Right olitp-alo-rwlq popliteal artery: mild stenosis. Mild atherosclerotic plaques along the vessel. Right jkeae-jwk-bmfq popliteal artery: mild stenosis. Mild atherosclerotic plaques [...] vessel. Left profunda femoris artery: patent Left wjksm-zri-xdsz popliteal artery: mild stenosis. Mild atherosclerotic plaques along the vessel. Left tfpku-kqz-kkhz popliteal artery: mild stenosis. Mild atherosclerotic plaques [...] vessel. Right profunda femoris artery: patent Right xdrth-lgu-svyt popliteal artery: mild stenosis. Mild atheroscleroticplaques along the vessel. Right sibhk-xdw-eikc popliteal artery: mild stenosis. Mild atheroscleroticplaques along [...] vessel. Left profunda femoris artery: patent Left nadrn-crg-lvys popliteal artery: mild stenosis. Mild atheroscleroticplaques along the vessel. Left pyvdc-cqy-jgyb popliteal artery: mild stenosis. 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 Expl anation Healthcare Proxy 01/04/2018 10:28 AM sign ed on 12/18/2017 * Full Code (Latest Code Status on File) Date Activated Date Inactivated Comments 07/15/2020 2:31 PM Question Answer Comments Code Status Confirmed With: Patient Code Status Communicated To: Inpatient Attending Care Teams Environmental Consultant Relationship Specialty Start Date End Date Andre Reed MD [address] [place] [address] PCP - General Internal Medicine 08/20/24 Self-Referred, Patient Referring Physician 10/31/17 Genaro Jarquin MD, DMD [email or web address] Otolaryngology 03/21/18 Additional Source Comments The information contained in this document represents components of the legal health record. It is not the complete legal health record.[facility]
--- OUTSIDE RECORDS SUMMARY | 2025-02-02 16:42 | XMS_ITS | Encounter Summary ---
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 Not on file Not on file documented as of this encounter Plan of Treatment Upcoming Encounters Date Type Department Care Team (Late Contact Info) Description 02/25/2025 3:00 PM EST Office Visit [facility], [facility] [facility] [place] [address] [place] [address], 11th [place] [address] Genaro Jarquin MD, DMD 45 [place] [address] [email or web address] documented as of this encounter Visit Diagnoses Not on filedocumented in this encounter Care Teams Drawing Operator Relationship Specialty Start Date End Date Carlos Boyd MD [address] [place] [address] PCP - General Internal Medicine 10/31/17 08/19/24 Andre Reed MD [address] [place] [address] PCP - General Internal Medicine 08/20/24 Self-Referred, Patient Referring Physician 10/31/17 Genaro Jarquin MD, DMD [email or web address] 03/21/18 documented as of this encounter Additional Source Comments The information contained in this document represents components of the legal health record. It is not the complete legal health record.[facility]
--- OUTSIDE RECORDS SUMMARY | 2025-02-02 16:42 | XMS_ITS | Encounter Summary ---
Author Organization [facility] Address [address] [facility] [address] [place] [address] Phone Care Team Providers Care Territory Sales Professional Name Role Phone Carlos Boyd MD Primary Care Provider [phone] Self-Referred, Patient Unavailable Unavailab Genaro Alfaro MD, DMD Unavailable [phone] Andre Reed MD Primary Care Provid er Encounter Details Date Type Department Care Team (Late st Contact Info) Description 07/13/2020 Procedure Pass [facility] Per[facility] [address] [place] [address] Social History Tobacco Use Types Packs/Day Years [...] for Head and Neck Oncology, [facility] [place] [address] [place] [address], 11th [place] [address] Genaro Jarquin MD, DMD 45 [place] [address] [email or web address] documented as of this encounter Visit Diagnoses Not on filedocumented in this encounter Care Teams Territory Sales Professional Relationship Specialty Start Date End Date Carlos Boyd MD [address] [place] [address] PCP - General Internal Medicine 10/31/17 08/19/24 Andre Reed MD [address] [place] [address] PCP - General Internal Medicine 08/20/24 Self-Referred, Patient Referring Physician 10/31/17 Genaro Jarquin MD, DMD [email or web address] [email or web address] 03/21/18 documented as of this encounter Additional Source Comments The information contained in this document represents components of the legal health record. It is not the complete legal health record.[facility]
--- OUTSIDE RECORDS SUMMARY | 2025-02-02 16:42 | XMS_ITS | Encounter Summary ---
Author Organization [facility] Address [address] [place] [address] Phone Care Team Providers Care Endless Belt Finisher Name Role Phone Carlos Boyd MD Primary Care Provider [phone] Self-Referred, Patient Unavailable Unavailab Genaro Alfaro MD, DMD Unavailable [phone] Andre Reed MD Primary Care Provid er Encounter Details Date Type Department Care Team (Late st Contact Info) Description 06/16/2020 Procedure Pass [facility] [address] [place] [address] Social History Tobacco Use Types Packs/Day Years [...] 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 file Not on file documented as of this encounter Plan of Treatment Upcoming Encounters Date Type Department Care Team (Late Contact Info) Description 02/25/2025 3:00 PM EST Office Visit [facility], [facility] [facility] [place] [address] [place] [address], 11th [place] [address] Genaro Jarquin MD, DMD 45 [place] [address] [email or web address] documented as of this encounter Visit Diagnoses Not on filedocumented in this encounter Care Teams Endless Belt Finisher Relationship Specialty Start Date End Date Carlos Boyd MD [address] [place] [address] PCP - General Internal Medicine 10/31/17 08/19/24 Andre Reed MD [address] [place] [address] PCP - General Internal Medicine 08/20/24 Self-Referred, Patient Referring Physician 10/31/17 Genaro Jarquin MD, DMD [email or web address] 03/21/18 documented as of this encounter Additional Source Comments The information contained in this document represents components of the legal health record. It is not the complete legal health record.[facility]
--- OUTSIDE RECORDS SUMMARY | 2025-02-02 16:42 | XMS_ITS | Encounter Summary ---
Author Organization [facility] Address [address] [place] [address] [place] [address] Phone Care Team Providers Care Shoer Name Role Phone Carlos Boyd MD Primary Care Provider [phone] Self-Referred, Patient Unavailable Unavailab Saji Jaime MD, PhD Unavailable [phone] Genaro Jarquin MD, DMD Unavailable [phone] Andre Reed MD Primary Care Provid er Encounter Details Date Type Department Care Team (Late st Contact Info) Description 11/08/2017 Procedure Pass [facility] OUTSIDE IMG [address] [place] [address] Social History Tobacco Use Types Packs/Day Years [...] Visit [facility], [facility] [facility] [place] [address] [facility], 11th [place] [address] Genaro Jarquin MD, DMD 45 [place] [address] [email or web address] documented as of this encounter Visit Diagnoses Not on filedocumented in this encounter Care Teams Shoer Relationship Specialty Start Date End Date Carlos Boyd MD [address] [place] [address] PCP - General Internal Medicine 10/31/17 08/19/24 Andre Reed MD [address] [place] [address] PCP - General Internal Medicine 08/20/24 Self-Referred, Patient Referring Physician 10/31/17 Saji Douglas MD, PhD [address] [place] [address] [email or web address] [facility] Radiation Oncology 11/14/17 03/20/18 Genaro Jarquin MD, DMD [address] [place] [address] [email or web address] 03/21/18 documented as of this encounter Additional Source Comments The information contained in this document represents components of the legal health record. It is not the complete legal health record.[facility]
--- OUTSIDE RECORDS SUMMARY | 2025-02-02 16:42 | XMS_ITS | Patient Health Record ---
Author Organization [facility] Address [address] [place] [id number] Care Team Providers Care Cvicu Nurse Name Role Phone Manoj Woodson Neil [phone] Reason For Referral No Information Plan Of Treatment No Information
--- OUTSIDE RECORDS SUMMARY | 2025-02-02 16:42 | XMS_ITS | Encounter Summary ---
Author Organization Located Within [facility] Address [address] [place] [address] Phone Care Team Providers Care Forklift Wheel Loader Name Role Phone Carlos Boyd MD Primary Care Provider [phone] Self-Referred, Patient Unavailable Unavailab Genaro Alfaro MD, DMD Unavailable [phone] Andre Reed MD Primary Care Provid er Encounter Details Date Type Department Care Team (Late Contact Info) Description 07/11/2020 Telephone [facility] [address] Radha Montenegro MD [email or web address] Social History Tobacco Use Types Packs/Day Years [...] 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 Not on file documented as of this encounter Plan of Treatment Upcoming Encounters Date Type Department Care Team (Late Contact Info) Description 02/25/2025 3:00 PM EST [facility] [address] [place] [address], [address] [place] [address] Genaro Jarquin MD, DMD [address] [place] [address] [email or web address] as of this encounter Visit Diagnoses Not on filedocumented in this encounter Care Teams Forklift Wheel Loader Relationship Specialty Start Date End Date Carlos Boyd MD [address] [place] [phone] PCP - General Internal Medicine 10/31/17 08/19/24 Andre Reed MD [address] [place] [id number] PCP - General Internal Medicine 08/20/24 Self-Referred, Patient Referring Physician 10/31/17 Genaro Jarquin MD, DMD [email or web address] 03/21/18 documented as of this encounter Additional Source Comments The information contained in this document represents components of the legal health record. It is not the complete legal health record.[facility]
--- OUTSIDE RECORDS SUMMARY | 2025-02-02 16:42 | XMS_ITS | Encounter Summary ---
Author Organization [facility] Address [address] [place] [address] [place] [phone] Phone Care Team Providers Care Gas Appliance Adjuster Name Role Phone Carlos Boyd MD Primary Care Provider [phone] Self-Referred, Patient Unavailable Unavailab Genaro Alfaro MD, DMD Unavailable [phone] Andre Reed MD Primary Care Provid er Encounter Details Date Type Department Care Team (Late st Contact Info) Description 05/24/2020 Prep for [facility] [address] [place] [address], [address] [place] [address] Genaro Jarquin MD, DMD [address] [place] [address] [email or web address] Malignant neoplasm of lower gingiva (Primary Dx) [...] 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 Not on file documented as of this encounter Plan of Treatment Upcoming Encounters Date Type Department Care Team (Late st Contact Info) Description 02/25/2025 3:00 PM EST Office [facility] [address] [place] [address], [address] [place] [address] Genaro Jarquin MD, DMD [address] [place] [address] [email or web address] documented as of this encounter Visit Diagnoses Diagnosis Malignant neoplasm of lower gingiva- Primary documented in this encounter Care Teams Gas Appliance Adjuster Relationship Specialty Start Date End Date Carlos Boyd MD [address] [place] [id number] PCP - General Internal Medicine 10/31/17 08/19/24 Andre Reed MD [address] [place] [phone] PCP - General Internal Medicine 08/20/24 Self-Referred, Patient Referring Physician 10/31/17 Genaro Jarquin MD, DMD [email or web address] 03/21/18 documented as of this encounter Additional Source Comments The information contained in this document represents components of the legal health record. It is not the complete legal health record[facility]
== END 2025-02-02 14:19 | disposition home or self-care (01) ==
LOC: HO.HMGCLDS 14:18
PROVIDERS: PCP Physician Assistant Medical; Visit Provider Urology
DX: E29.1 Testicular hypofunction (principal); Z12.5 Encounter for screening for malignant neoplasm of prostate
CPT/HCPCS: 36415; 84153; 84403; 85014